=== PATIENT | female | born 1935 | race Caucasian/White ===

== ENCOUNTER 2017-07-10 18:21 | Inpatient (IN) | payer OTHER ==
[~2017-07-10] VITALS: Ht 152.4 cm; Wt 67.6 kg
[2017-07-10 19:09] LABS: HEMOGLOBIN 7.9 gm/dL (12.0-15.0); MCHC 32.5 g/dL (28.0-37.0); NUCLEATED RBCS 0 /100WBC; WBC 8.6 thou/uL (4.0-11.0)
[2017-07-10 19:13] LABS: HEMATOCRIT 24.4 % (37.0-47.0); MCH 30.2 pg (26.0-34.0); MCV 93.1 fL (80.0-100.0); MPV 9.3 fl. (7.2-11.1); PLATELET COUNT* 211 thou/uL (150-400); RBC 2.62 mil/uL (4.20-5.00); RDW-CV 16.4 % (10.5-14.5)
[2017-07-10 19:50] LABS: ABSOLUTE EOSINOPHILS 0.1 thou/uL (0.0-0.7); ABSOLUTE MONOCYTES 0.6 thou/uL (0.0-1.2); ABSOLUTE NEUTROPHILS 6.9 thou/uL (1.6-8.1); PLATELET ESTIMATE ADEQUATE
[2017-07-10] MEDS ORDERED: AMLODIPINE BESY10 MG PO (20:04)
[2017-07-10] MEDS ORDERED: LIPITOR10 MG PO (20:04)
[2017-07-10] MEDS ORDERED: PROTONIX40 M1 PO (20:05)
[2017-07-10] MEDS ORDERED: CARVEDILOL12.5 MG PO (20:05)
[2017-07-10] MEDS ORDERED: HYDRALAZINE 2525 MG PO (20:05)
[2017-07-10] MEDS ORDERED: PHOSLO667 MG PO (20:05)
[2017-07-10] MEDS ORDERED: MIRALAX17 GM PO (20:06)
[2017-07-10] MEDS ORDERED: HYDROCODONE-AP1 EAC6 PO (20:07)
[2017-07-10] MEDS ORDERED: VITAMIN D250000 UNIT PO (20:07)
[2017-07-10 20:25] VITALS: BP 130/53
[2017-07-10 20:43] LABS: ALBUMIN 2.1 g/dL (3.4-5.0); ALKALINE PHOSPHATASE 220 U/L (46-116); ANION GAP 7 mmol/L (7-16); CALCIUM 8.9 mg/dL (8.5-10.1); CHLORIDE 103 mmol/L (98-107); CO2 30 mmol/L (21-32); CREATININE 2.4 mg/dL (0.6-1.3); GLUCOSE 125 mg/dL (70-99); LIPASE 201 U/L (73-393); POTASSIUM 3.8 mmol/L (3.5-5.1); SGOT 70 U/L (15-37); SGPT 100 U/L (30-65); SODIUM 140 mmol/L (136-145); TOTAL BILIRUBIN 0.2 mg/dL (<0.1-1.0); TOTAL PROTEIN 6.1 g/dL (6.4-8.2); TROPONIN-I LEVEL <0.06 ng/mL (<0.06)
[2017-07-10 20:56] LABS: BUN 21 mg/dL (7-18)
[2017-07-10 23:30] VITALS: BP 125/57
[2017-07-10 23:52] LABS: URINE BILIRUBIN NEGATIVE (Negative); URINE BLOOD 3+ (Negative); URINE CLARITY TURBID; URINE COLOR YELLOW; URINE GLUCOSE-RANDOM NEGATIVE (Negative); URINE KETONES NEGATIVE (Negative); URINE LEUKOCYTES 3+ (Negative); URINE NITRITE NEGATIVE (Negative); URINE PROTEIN 2+ (Negative); URINE SPECIFIC GRAVITY 1.025 (1.005-1.030); URINE UROBILINOGEN 0.2 E.U./dl (0.2-1.0)
[2017-07-11] VITALS: BP 113/52
[2017-07-11 00:07] LABS: CASTS None Seen /LPF (None Seen); URINE WBC >25 Many /HPF (0-5)
[2017-07-11 00:08] LABS: BACTERIA >30 Many /HPF (None Seen); CRYSTALS None Seen /LPF (None Seen); URINE RBC 3-10 Few /HPF (0-2)
[2017-07-11 00:09] LABS: SQUAMOUS 0-3 Few /LPF (0-3)
[2017-07-11 04:00] VITALS: BP 122/61
--- NOTE | 2017-07-11 05:17 | NUR ---
PT TO FLOOR AT 2039. A&O X4. AFIB ON THE MONITO. REPORTS SOA, ON 4L O2 NC, HOB ELEVATED WITH RELIEF. MEDICAL RECORDS FAXED FROM [facility]. PT R AC INFILTRATED NEW IV IN RIGHT HAND. PT ON REPORTS UNABLE TO WALK DUE TO FLUID IN LEGS AND PAIN. PAIN REPORTED 6 GIVEN TYLENOL. VITALS WNL. FALL PRECAUTIONS IN PLACE. HOURLY ROUNDIN FOR SAFETY.
--- NOTE | 2017-07-11 08:00 | NUR ---
RECIEVED REPORT. ASSUMED CARE OF PT AT 0730. VSS. CARDIAC MONTIORING IN PLACE AFIB. AM ASSESSMENT AND VITALS COMPLETED CHARTED. PT ALERT AND ORIENTED. PT ON 4L PER NC. PT'S O2 SAT AT 96% THIS RN ATTEMPTED TO TITRATE O2 HOWEVER PT REFUSED THIS AM. PT DENIES ANY COMPLAINTS OF PAIN OR DISCOMFORT THIS AM. IV SALINE LOCKED TO RIGHT HAND. PT HAS RIGHT TEMPORARY DIALYSIS CATHETER TO CHEST. FISTULA TO LEFT UPPER ARM. 3+ EDEMA TO LUE. 1+ EDEMA TO RUE. AND 2+ EDEMA TO BILATERAL LE. BRADLEY IN PLACE WITH YELLOW URINE OUTPUT. PT INFORMED OF PLAN OF CARE. PT COMMUNICATES UNDERSTANDING. CALL LIGHT IS WITHIN REACH. WILL CONTINUE TO MONTIOR FOR DURATION OF SHIFT.
[2017-07-11 08:40] VITALS: BP 123/61
[2017-07-11 11:23] VITALS: BP 114/60
--- NOTE | 2017-07-11 11:24 | NUR ---
VIVIENNE SPOKE TO DR LEON TO DISCUSS PATIENTS REQUEST TO TRANSFER TO [facility]. DR LEON INFORMS THAT THE PATIENT WILL NEED A TELE BED, AND THE REASON FOR TRANSFER IS PER PATIENTS REQUEST. VIVIENNE CONTACTED THE [facility] TRANSFER TEAM AND SPOKE TO VINAY TO INFORM O THE TRANSFER. VINAY INFORMS THAT "[facility] IS CLOSED TO ALL TRANSFERS". CM SPOKE TO THE PATIENT TO INFORM OF THIS AND PATIENT STATES 'IF I CAN'T GO TO [facility], I'LL JUST STAY HERE'. CM INFORMED THE RN IN-CHARGE OF THE PATIENT AND DR LEON OF THIS AND THEY ARE IN AGREEMENT. CM WILL REMAIN AVAILABLE TO ASSIST AND FOLLOW NEEDED.
--- NOTE | 2017-07-11 14:37 | EKG ---
[place] [address] ELECTROCARDIOGRAM REPORT Name: KIRTI SIMPSON Room: [address] ADM IN ..#: [id number] Admission: 07/10/17 Attend Phys: Janine Gray Discharge: Date of : 31 Report #: [id number] THIS REPORT FOR: //name// [facility] ED Test Date: 2017-07-10 Test Time: 18:33:08 Pat Name: KIRTI SIMPSON Department: Room: [facility] Gender: F Human Resources Operations Director: BISI : 1935 Requested By: Mary Botello Order Number: [id number] MD: Alexx Plaza Measurements Intervals [place] Rate: 90 P: 104 OK: 188 QRS: -39 QRSD: 159 T: 15 QT: 381 QTc: 467 Interpretive Statements Sinus rhythm Ventricular premature complex Right bundle branch block No previous ECG available for comparison Electronically Signed On 07-11-2017 14:37:39 MARKETING OUTREACH COORDINATOR by Alexx Plaza [email or web address] <ELECTRONICALLY SIGNED> By: Alexx Plaza MD, [facility] 07/11/17 1437 183 32 Alexx Plaza MD, [facility] /EPI
[2017-07-11 15:58] VITALS: BP 104/62
--- NOTE | 2017-07-11 17:01 | NUR ---
VSS. CARDIAC MONITORING IN PLACE WITH NO CHANGES THIS SHIFT. PT REMAINS ALERT AND ORIETNED. PT REMAINS ON 4L PER NC. IV SALINE LOCKED. PT HAS HAD NO COMPLAINTS OF PAIN OR DISCOMFORT THIS SHIFT. PT PROGRESSING TOWARDS GOALS. PT HAS HAD NO COMPLAINTS OF SOA. PT REPOSITIONED THROUGHOUT THIS SHIFT. CALL LIGHT IS WITHIN REACH. WILL CONTINUE TO MONITOR FOR DURAITON OF SHFIT.
--- NOTE | 2017-07-11 19:49 | NUR ---
VSS, PT WAS TAKEN TO DIALYSIS NO OTHER STATUS CHANGE AT THIS TIME,
[2017-07-11 22:00] VITALS: BP 118/48
[2017-07-12] VITALS: BP 130/55
[2017-07-12 04:00] VITALS: BP 118/73
--- NOTE | 2017-07-12 04:41 | NUR ---
PT BACK FROM DIALYSIS 2121 AND HAD 2.5 L OUT, ASSUMED CARE AT 2121. REPORTS SOA O2 MOVED TO 4L AND HOB ELEVATED. AFIB ON THE MONITOR. GENERALIZED EDMEA. MAX ASSIST FOR TRANSFER. LUNGS COARSE AND DIM. VITALS WNL. FALL PRECAUTIONS IN PLACE. HOURLY ROUNDING FOR SAFETY.
[2017-07-12 04:59] LABS: CALCIUM 9.1 mg/dL (8.5-10.1); HEMATOCRIT 23.4 % (37.0-47.0); HEMOGLOBIN 7.7 gm/dL (12.0-15.0); MCH 30.3 pg (26.0-34.0); MCHC 32.9 g/dL (28.0-37.0); MPV 9.9 fl. (7.2-11.1); NUCLEATED RBCS 0 /100WBC; PLATELET COUNT* 220 thou/uL (150-400); POTASSIUM 3.8 mmol/L (3.5-5.1); RBC 2.54 mil/uL (4.20-5.00); RDW-CV 16.3 % (10.5-14.5); WBC 9.4 thou/uL (4.0-11.0)
[2017-07-12 05:19] LABS: CREATININE 3.4 mg/dL (0.6-1.3)
[2017-07-12 06:22] LABS: ABSOLUTE BASOPHILS 0.1 thou/uL (0.0-0.2); ABSOLUTE EOSINOPHILS 0.1 thou/uL (0.0-0.7); ABSOLUTE LYMPHOCYTES 0.8 thou/uL (0.8-5.3); ABSOLUTE MONOCYTES 0.5 thou/uL (0.0-1.2); ANISOCYTOSIS 1+; HYPOCHROMASIA 2+; METAMYELOCYTES 1 %; PLATELET ESTIMATE ADEQUATE
--- NOTE | 2017-07-12 07:45 | NUR ---
RECEIVED REPORT FROM FRANCISCO WARE. ASSUMED CARE OF PT AT 0730. VSS. CARDIAC MONTIORING IN PLACE AFIB. AM ASSESSMENT AND VITALS COMPLETED CHARTED. PT ALERT AND ORIETNED. PT TITRATED TO 2.5L PER NC WITH O2 SAT AT 94% PT'S RESPIRATIONS EVEN AND UNLABORED THIS AM. CXR SHOWS PERSISTENT SMALL TO MOD PLEURAL EFFUSION. PT DENIES ANY COMPLAINTS OF PAIN OR DISCOMFORT THIS AM. PT'S EDEMA HAS IMPROVED FROM YESTERDAY. PT HAS 2+ EDEMA TO LUE. PT HAS NONPITTING EDEMA TO RUE. AND PT HAS 1+ EDEMA TO BILATERAL LE. NOTED BOGGY HEELS THIS AM. PT RE-EDUCATED TO ELEVATE HEELS. PILLOW AND WEDGE PROVIDED. BRADLEY REMIANS IN PLACE WITH YELLOW URINE OUTPUT. PT ENCOURAGED TO INCREASE ACTIVITY TODAY. PT COMMUNICATES UNDERSTANDING. CALL LIGHT IS WITHIN REACH. WILL CONTINUE TO MOTNIOR FOR DURAITON OF SHIFT.
[2017-07-12 08:43] VITALS: BP 130/62
--- NOTE | 2017-07-12 09:24 | NUR ---
NOTED THAT PT WAS NOT ON ANTICOAGULATION FOR AFIB. DISCUSSED WITH DR. MIRAMONTES. WILL CONTINUE TO MOTNIOR.
--- NOTE | 2017-07-12 10:54 | NUR ---
PT HAS COMPLAINTS OF FEELING SOA. O2 SAT CHECKED WAS AT 94% ON 2.5L. PT REPOSITIONED. PT REQUESTING BREATHING TREATMENT. WILL CONTINUE TO MOTNIOR.
[2017-07-12 12:40] VITALS: BP 115/59
[2017-07-12 16:00] VITALS: BP 107/53
--- NOTE | 2017-07-12 16:46 | NUR ---
VSS. CARDIAC MONITOIRING IN PLACE WITH NO CHANGES THIS SHIFT. PT SOMEWHAT PROGRESSING TOWARDS GOALS. PT HAS CONTINUED COMPLAINTS OF INTERMITTENT SOA. DR. LEON DISCUSSED THE POSSIBILY OF THORACENTESIS TOMORROW. PT REMIANS ON 2.5L PER NC. IV SALINE LOCKED. PT HAS HAD NO COMPLAINTS OF PAIN OR DISCOMFORT THIS SHIFT. PT ASSISTED TO RECLINING CHAIR X2 ASSIST. PT HAD LARGE BM THIS SHIFT. CALL LIGHT IS WITHIN REACH. BRADLEY REMAINS IN PLACE WITH CLOUDY YELLOW URINE OUTPUT NOTED. CALL LIGHT IS WITHIN REACH. WILL CONTINUE TO MOTNIOR FOR DURAITON OF SHIFT.
[2017-07-12 19:50] VITALS: BP 110/45
[2017-07-13] VITALS (7 sets, daily range): BP systolic 92–142; BP diastolic 50–71
[2017-07-13 04:56] LABS: ABSOLUTE BASOPHILS 0.1 thou/uL (0.0-0.2); ABSOLUTE EOSINOPHILS 0.2 thou/uL (0.0-0.7); ABSOLUTE LYMPHOCYTES 1.6 thou/uL (0.8-5.3); ABSOLUTE MONOCYTES 0.6 thou/uL (0.0-1.2); ABSOLUTE NEUTROPHILS 7.5 thou/uL (1.6-8.1); BASOPHILS 0.5 %; EOSINOPHILS 2.1 %; HEMATOCRIT 24.2 % (37.0-47.0); HEMOGLOBIN 7.7 gm/dL (12.0-15.0); LYMPHOCYTES 16.3 %; MCH 29.5 pg (26.0-34.0); MCHC 31.6 g/dL (28.0-37.0); MCV 93.5 fL (80.0-100.0); MONOCYTES 5.7 %; MPV 9.5 fl. (7.2-11.1); NUCLEATED RBCS 0 /100WBC; PLATELET COUNT* 227 thou/uL (150-400); POLYS 75.4 %; RBC 2.59 mil/uL (4.20-5.00); RDW-CV 17.1 % (10.5-14.5)
[2017-07-13 05:23] LABS: CALCIUM 8.9 mg/dL (8.5-10.1); CREATININE 3.9 mg/dL (0.6-1.3); POTASSIUM 4.3 mmol/L (3.5-5.1)
--- NOTE | 2017-07-13 06:58 | NUR ---
A&O X4 CALM COOPERITVE. 2L O2 SAT 95. X1-2 ASSIST WITH WALKER. AFIB ON THE MONITOR. PLAN IS FOR THORENCETISIS AND DIALYSIS IN AM. PAIN IN BI LAT LEGS GIVEN PAIN PILL. VITALS WNL, FALL PRECAUTIONS IN PLACE, HOURLY ROUNDING FOR SAFETY.
--- NOTE | 2017-07-13 09:41 | NUR ---
PATIENT CARE ASSUMED AT 0700. PATIENT ASSESSMENT AND VITALS DOCUMENTED. TRACING A-FIB WITH A BUNDLE BRANCH BLOCK ON PHYSICIAN ANESTHESIOLOGIST. MEDS GIVEN WHOLE WITH WATER. PROVIDED BOOST VANILLA FOR BREAKFAST, PATIENT STATED SHE DIDN'T WANT TO EAT. PATIENT TO HAVE THORACENTESIS AT 1120 WITH POST TEST XRAY AND THEN DIALYSIS AT 1430 THIS AFTERNOON. GOALS FOR TODAY ARE TO PROMOTE BREATHING AND MANAGE OXYGEN, COMPLETE THORACENTESIS, MAINTAIN HEMODYNAMIC STABILITY, DIALYSIS AND STRICT INTAKE AND OUTPUT, MAINTAIN SKIN INTEGRITY, AND PROMOTE SAFETY AND COMFORT.
[2017-07-13 10:08] LABS: INR 1.1; PROTIME 11.1 Seconds (9.20-11.50)
--- NOTE | 2017-07-13 11:31 | NUR ---
PATIENT LEFT THE UNIT FOR THORACENTESIS AT 1120.
--- NOTE | 2017-07-13 12:38 | NUR ---
PATIENT RETURNED FROM THORACENTESIS. HAD NON-RESPONSIVE EVENT IN ULTRASOUND POST PROCEDURE. 1,000 ML CLEAR YELLOW FLUID DRAINED FROM THE RIGHT LUNG PER DR CAMP. PATIENT HAS NON-PRODUCTIVE COUGH POST PROCEDURE, BUT SITE INTACT WITH NO BLEEDING. PATIENT NOW AOX4. BP 93/57 WITH A MAP OF 70 POST PROCEDURE. WILL CONTINUE WITH CLOSE MONITORING OF BLOOD PRESSURE. CONTINUES TO TRACE A-FIB RIGHT BUNDLE BRANCH BLOCK ON PRINTING PRESS MACHINIST. PATIENT STILL TO DIALYZE THIS AFTERNOON.
[2017-07-13 12:56] LABS: SOURCE RIGHT THORACENTESIS
--- NOTE | 2017-07-13 12:57 | NUR ---
PATIENT REPORTING INCREASED PAIN IN RIGHT LUNG. CXR COMPLETED AND IS PENDING. MOVING AIR EQUALLY IN BILATERAL LUNGS. CLEAR/DIMINISHED IN THE BASES. O2 SAT 93% ON 3L NC. PATIENT GIVEN PRN TYELNOL FOR PAIN RATED AT 5/10. NOTIFIED THAT IF PAIN IS NOT CONTROLLED 45 MINUTES TO AN HOUR AFTER TYLENOL, HYDROCODONE PRN IS AVAILABLE.
--- NOTE | 2017-07-13 13:29 | NUR ---
CM ASSESSMENT: Pt is A&O. Pt normally resides at home alone. Has been at [facility] skilled prior to this admission, Pt/dtr do not want Pt to return there at tn. Pt scheduled to have a thora today, then dialysis afterwards. Pt receives HD at [facility], with a noon chair time. Pt in agreement with skilled at tn, [facility], [facility]. Following for dc needs.
--- NOTE | 2017-07-13 14:05 | 2DMMODE ---
[place] [address] 2 D/M-MODE ECHOCARDIOGRAM Name: KIRTI SIMPSON Room: [address] IN .R.#: [id number] Admission: 07/10/17 Attend Phys: Sam Brantley Discharge: Date of : 31 Date of Service: 07/13/17 1404 Report #: [id number] THIS REPORT FOR: //name// APPROVED REPORT Study performed: 07/13/2017 10:13:09 EXAM: Comprehensive 2D, Doppler, and color-flow Echocardiogram Patient Location: Bedside BSA: 1.69 HR: 95 bpm BP: 114/59 mmHg Other Information Study Quality: Good Indications Aortic Valve Disease 2D Dimensions LVEF(%): 70.93 (>50%) IVSd: 12.63 (7-11mm) LVOT Diam: 14.81 (18-24mm) LVDd: 39.05 mm PWd: 11.10 (7-11mm) Ascending Ao: 20.81 (22-36mm) LVDs: 23.55 (25-40mm) Aortic Root: 22.87 mm Mahajan's LVEF: 70.93 % Volumes Left Atrial Volume (Systole) LA ESV Index: 39.30 mL/m2 Aortic Valve AoV Peak Vamshi.: 2.18 m/s AO Peak Gr.: 18.93 mmHg LVOT Max P.90 mmHg AO Mean Gr.: 10.57 mmHg LVOT Mean P.87 mmHg LVOT Max V: 0.99 m/s AO V2 VTI: 37.77 cm LVOT Mean V: 0.62 m/s BRANDYN (VTI): 0.83 cm2 LVOT V1 VTI: 18.29 cm Mitral Valve E/A Ratio: 2.94 MV Decel. Time: 142.96 ms MV E Max Vamshi.: 1.14 m/[place] [address] 2 D/M-MODE ECHOCARDIOGRAM Name: KIRTI SIMPSON Room: [address] IN [facility]#: [id number] Admission: 07/10/17 Attend Phys: Sam Brantley Discharge: Date of : 31 Date of Service: 07/13/17 1404 Report #: [id number] MV PHT: 41.46 ms MVA (PHT): 5.31 cm2 TDI E/Lateral E': 14.25 E/Medial E': 11.40 Medial E' Vamshi.: 0.10 m/s Lateral E' Vamshi.: 0.08 m/s Pulmonary Valve PV Peak Vamshi.: 1.04 m/s PV Peak Gr.: 4.32 mmHg Tricuspid Valve RAP Estimate: 20.00 mmHg TR Peak Gr.: 23.90 mmHg RVSP: 43.90 mmHg PA Pressure: 43.90 mmHg Left Ventricle The left ventricle is normal size. There is normal LV segmental wall motion. Mild concentric left ventricular hypertrophy. Left ventricular systolic function is normal. The left ventricular ejection fraction is within the normal range. LVEF is 60-65%. The left ventricular diastolic function is normal. Right Ventricle The right ventricle is normal size. The right ventricular systolic function is normal. Atria Left atrium is mildly dilated. The right atrium size is normal. Aortic Valve Aortic valve leaflets are mildly thickened. No aortic regurgitation is present. Mild aortic stenosis. Mitral Valve Mitral valve leaflets are calcified. Mild mitral regurgitation. No evidence of mitral valve stenosis. Tricuspid Valve The tricuspid valve is normal in structure. Mild tricuspid regurgitation. estimated pa pressure 30 mm Hg Pulmonic Valve The pulmonary valve is normal in structure. There is no pulmonic [place] [address] 2 D/M-MODE ECHOCARDIOGRAM Name: KIRTI SIMPSON Room: [address]#: [id number] Admission: 07/10/17 Attend Phys: Sam Brantley Discharge: Date of : 31 Date of Service: 07/13/17 1404 Report #: [id number] Great Vessels The aortic root is normal in size. IVC is dilated. Pericardium Mild circumferential pericardial effusion. There is a pleural effusion. <Conclusion> Mild concentric left ventricular hypertrophy. LVEF is 60-65%. Left atrium is mildly dilated. Mild aortic stenosis. Mild mitral regurgitation. Mild circumferential pericardial effusion. There is a pleural effusion. <ELECTRONICALLY SIGNED> By: Mo Caicedo MD, FACC 07/13/17 1404 1404 1404 Mo Caicedo MD, FACC /INF
--- NOTE | 2017-07-13 16:55 | NUR ---
PATIENT SOMEWHAT PROGRESSING TOWARDS GOALS. NO FURTHER EPISODES OF DECREASED RESPONSIVENESS SINCE THORACENTESIS. HAS REMAINED AOX4. LARGE BM USING BEDPAN UPON RETURNING FROM ULTRASOUND. REMAINS TRACING A-FIB WITH A BUNDLE BRANCH BLOCK ON CHILD CARE. RATE 80-115. BLOOD PRESSURES 90S/40S BUT HAVE REMAINED STABLE WITH MAP ABOVE 65. PATIENT DENIES FURTHER NEEDS FOR PAIN MEDICATION AFTER ONE DOSE OF HYDROCODONE. STILL TO DIALYZE PER DIALYSIS NURSE AFTER DINNER. DID REFUSE THERAPIES TODAY. NOTED THAT PATIENT IS NOT ON ANTICOAGULANTS, DISCUSSED WITH DR LEON'S MED STUDENT. PATIENT DID HAVE THORACENTESIS TODAY, SO THIS MAY NEED TO BE DISCUSSED WITH CARDIOLOGY AT A LATER DATE. POOR APPETITE. BOOST VANILLA GIVEN WITH EACH MEAL. DENIES FURTHER NEEDS FROM NURSING AT THIS TIME.
--- NOTE | 2017-07-13 18:33 | NUR ---
PATIENT TAKEN TO DIALYSIS AT 1830.
[2017-07-14 04:00] VITALS: BP 125/60
[2017-07-14 04:53] LABS: ABSOLUTE EOSINOPHILS 0.1 thou/uL (0.0-0.7); ABSOLUTE LYMPHOCYTES 1.2 thou/uL (0.8-5.3); ABSOLUTE MONOCYTES 0.6 thou/uL (0.0-1.2); ABSOLUTE NEUTROPHILS 8.7 thou/uL (1.6-8.1); BASOPHILS 0.3 %; EOSINOPHILS 1.3 %; HEMATOCRIT 23.1 % (37.0-47.0); HEMOGLOBIN 7.4 gm/dL (12.0-15.0); LYMPHOCYTES 11.2 %; MCH 29.8 pg (26.0-34.0); MCHC 32.2 g/dL (28.0-37.0); MCV 92.7 fL (80.0-100.0); MONOCYTES 5.7 %; MPV 9.3 fl. (7.2-11.1); NUCLEATED RBCS 0 /100WBC; PLATELET COUNT* 188 thou/uL (150-400); POLYS 81.5 %; WBC 10.7 thou/uL (4.0-11.0)
[2017-07-14 05:53] LABS: CALCIUM 8.6 mg/dL (8.5-10.1); POTASSIUM 4.2 mmol/L (3.5-5.1)
[2017-07-14 05:54] LABS: CREATININE 2.7 mg/dL (0.6-1.3)
--- NOTE | 2017-07-14 07:42 | NUR ---
PT BACK FROM DIALYSIS AT 2245 AND ASSUMED CARE. PT HAD PAIN IN LEGS GIVEN PAIN PILL WITH RELIEF NOTED. PT AFIB ON THE MONITOR. PT REFUSES TURNS. FALL PRECAUTIONS IN PLACE. HOURLY ROUNDING FOR SAFETY. VITALS WNL. X1 ASSIST.
[2017-07-14 08:00] VITALS: BP 117/55
--- NOTE | 2017-07-14 10:21 | NUR ---
Spoke with Matilde at [facility], they are able to clinically accept, awaiting insurance auth. Updated Pt. Following.
[2017-07-14 11:12] LABS: BODY FLUID LDH 168 IU/L (()); BODY FLUID PROTEIN 1.6 g/dL (())
[2017-07-14 11:29] VITALS: BP 124/53
--- NOTE | 2017-07-14 13:19 | CNG ---
[address] [address] CYTO-NONGYN REPORT PROCEDURE Name: KIRTI SIMPSON Room: [address] IN .R.#: [id number] Admission: 07/10/17 Date of : 31 Discharge: Report #: [id number] Path Case #: [id number] CYTOPATHOLOGY REPORT COLLECTION DATE: 07/13/2017 RECEIVED DATE: 07/13/2017 SUBMITTING PHYS: Dr. Sandeep Rodríguez OTHER PHYS: Dr. Sam Marinelli CLINICAL HISTORY: Renal failure, dyspnea SPECIMEN(S) RECEIVED: A.Pleural fluid, Right * * * * * * * * * * * * FINAL DIAGNOSIS: Pleural fluid, right: - No malignant cells identified. -Mesothelial cells and inflammatory cells, predominantly chronic. (ANASTASIYA:r; 07/14/2017) PATHOLOGIST: Anibal Kamara M.D. REPORT ELECTRONICALLY SIGNED BY: Anibal Kamara M.D. DATE/TIME: 07/14/2017 13:03 * * * * * * * * * * * * GROSS PATHOLOGY: Pleural fluid, right: The specimen is submitted fixed, labeled "Kirti Simpson". Received by the Cytology Department is 35 mL of cloudy yellow fluid. One ThinPrep slide and an alcohol fixed cell block were prepared. (07.13.2017) AUTOMOTIVE MAINTENANCE TECHNICIAN(S): HALIMA Menjivar([facility]) INITIAL CPT CODE(S): A; 29839, 68904 Professional services performed by [facility] at [facility], [address], [place] [address]. Technical services performed by [facility] at [address] [place] [address]., [address], [place] [address]. [facility] [address] [place] [address], [address] [place] [address] [place] [address] CYTO-NONGYN REPORT PROCEDURE Name: KIRTI SIMPSON Room: [address] IN .R.#: [id number] Admission: 07/10/17 Date of : 31 Discharge: Report #: [id number] Path Case #: [id number] PHONE: [phone] DIRECTOR: Cleveland Mendieta M.D. * * * END OF REPORT * * *
--- NOTE | 2017-07-14 13:44 | NUR ---
ASSUMED PT CARE AT 0700 PT IS ALERT AND ORIENTED X 4 PT HAS DIALYSIS PORT IN RIGHT CHEST PT FISTULA IN THE LEFT ARM IS NOT ABLE TO BE ACCESSED, PT DENIES PAIN OR SOA ON 2L/NC, PT IS PLEASANT AND COOPERATIVE CALLED DIALYSIS PT DOES NOT HAVE DIALYSIS SCHEDULED TODAY PHYSICIAN SAW PT AND STATES PT IS NOT ABLE TO DISCHARGE TODAY, PT IS AFIB ON THE MONITOR PT LEFT ARM HAS EDEMA, PT HAS WEAKNESS UNABLE TO GET UP OUT OF BED IS USING BEDPAN, WILL CONTINUE TO MONITOR
[2017-07-14 17:56] VITALS: BP 96/51
[2017-07-14 20:00] VITALS: BP 119/53
[2017-07-15] VITALS: BP 114/56
[2017-07-15 04:00] VITALS: BP 135/61
--- NOTE | 2017-07-15 07:38 | NUR ---
A&O X4 CALM COOPERITIVE, AFIB BBB ON THE MONITOR. X1 ASSIST. 4L O2. VITALS WNL. FALL PRECAUTIONS IN PLACE. HOURLY ROUNDING FOR SAFETY.
[2017-07-15 13:01] LABS: HEMATOCRIT 25.7 % (37.0-47.0); HEMOGLOBIN 8.1 gm/dL (12.0-15.0); MCH 29.2 pg (26.0-34.0); MCHC 31.3 g/dL (28.0-37.0); MCV 93.2 fL (80.0-100.0); RBC 2.76 mil/uL (4.20-5.00); RDW-CV 17.6 % (10.5-14.5)
[2017-07-15 13:17] LABS: ALBUMIN 2.1 g/dL (3.4-5.0); CALCIUM 8.7 mg/dL (8.5-10.1); CREATININE 1.6 mg/dL (0.6-1.3); POTASSIUM 3.6 mmol/L (3.5-5.1); TOTAL BILIRUBIN 0.3 mg/dL (<0.1-1.0); TOTAL PROTEIN 6.3 g/dL (6.4-8.2)
--- NOTE | 2017-07-15 15:02 | NUR ---
ASSUMED PT CARE AT 0700 PT IS ALERT AND ORIENTED X 4 PT PT IS A FALL RISK BED ALARM IS ON, PT WENT TO DIALYSIS AROUND 0800 PT IS AFIB ON MONITOR, PT CAME BACK FROM DIALYSIS AROUND 1230 3 LITERS REMOVED DIALYSIS NURSE STATED PT HEART RATE HAS BEEN IN THE 130'S TALKED WITH DR MG WHO ORDERED A CARDIOLOGY CONSULT AWAITING CARDIOLOGY TO SEE PT, PT WORKED WITH OT WHO GOT PT IN CHAIR PT SAT IN CHAIR FOR AN HOUR AND PT IS BACK IN BED WITH BED ALARM ON, WILL CONTINUE TO MONITOR
--- NOTE | 2017-07-15 15:15 | NUR ---
Pt not discharging today. Cardiology consulted. Updated Sara at [facility].
[2017-07-15 16:00] VITALS: BP 109/56
[2017-07-15 19:50] VITALS: BP 110/44
[2017-07-16] VITALS: BP 110/44
[2017-07-16 04:00] VITALS: BP 127/50
--- NOTE | 2017-07-16 07:45 | NUR ---
A&O X4 CALM COOPERITVE. SR BBB ON THE MONITOR. X1 ASSIST TO COMODE. PT ON 4L O2. NO BM. VITALS WNL. FALL PRECAUTIONS IN PLACE. HOURLY ROUNDING FOR SAFETY.
[2017-07-16 09:00] VITALS: BP 127/44
--- NOTE | 2017-07-16 10:23 | NUR ---
Acute rehab consult to be placed. Discussed with Dr Brantley and he is in agreement with pursuing rehab. Updated Pt's dtr. PT/OT/ST to work with Pt today. Dtr in agreement and is available post discharge to either stay with Pt or have Pt come and stay with her. Following.
[2017-07-16 11:58] VITALS: BP 119/50
--- NOTE | 2017-07-16 14:29 | NUR ---
ASSUMED PT CARE AT 0700 PT IS ALERT AND ORIENTED X 4 PT DENIES PAIN PT C/O SOA ON 4L/NC INCREASED OXYGEN TO 5L RAISED HOB CALLED RESPIRATORY WHO GAVE PT BREATHING TREATMENT PT ABLE TO BREATH EASIER AFTER TREATMENT, PT WORKED WITH PHYSICAL THERAPY PT IS IN CHAIR PT HAD MIRALAX ON PREVIOUS SHIFT PT HAD SOFT LOOSE BOWEL MOVEMENT, PT IS SR BBB ON THE MONITOR, DR LEON SAW PT WANTS PT TO STAY A FEW MORE DAYS TO DIALYIZE MORE FLUID OFF PT BEFORE DISCHARGING TO [facility], WILL CONTINUE TO MONITOR
[2017-07-16 16:10] VITALS: BP 134/50
--- NOTE | 2017-07-16 16:21 | NUR ---
RECEIVED CONSULT FOR POSSIBLE REHAB ADMISSION. CONSULT HAS BEEN ACKNOWLEDGED BY TAX CLERK AND DR. MENDOZA. CARDIOLOGY CONSULT IS PENDING. PT WORKING WITH PT/OT/ST AND HAS NEEDS FOR ALL THREE. PT IS A NEW DIALYSIS PT. SPOKE WITH THERAPIES FEEL PT WOULD BE A GOOD REHAB CANDIDATE. PLOF WAS INDEPENDENT. PT AGREEABLE TO ACUTE REHAB. WILL PLAN TO ACCEPT PT TO ACUTE REHAB ONCE MEDICALLY STABLE AND PENDING INSURANCE AUTH. SPOKE WITH STANISLAV PALAFOX AND INFORMED HER OF TENTATIVE ACCEPTANCE. HAVE INITIATED AUTH. THANK YOU FOR THIS CONSULT.
--- NOTE | 2017-07-16 19:34 | CON ---
[address] [address] CONSULTATION Name: KIRTI SIMPSON Room: [address] IN M.R.#: [id number] Admission: 07/10/17 Attend Phys: Janine Gray Discharge: Date of : 31 Report #: [id number] THIS REPORT FOR: //name// CC: Nabil Brantley DATE OF SERVICE: 07/15/2017 CARDIOLOGY CONSULTATION HISTORY OF PRESENT ILLNESS: The patient is an 81-year-old single white female who I was asked to see in the hospital today because of her atrial fibrillation. The patient has a long history of diabetes and hypertension. She has a long history of chronic kidney disease. She apparently was admitted to [facility] in [place], [place] in June. She developed renal failure and was transferred to [place]. She started on hemodialysis. She was then discharged to rehabilitation center in [place]. She was being dialyzed there. She apparently had a fistula placed in the left arm, but it does not work. So she now has a temporary dialysis catheter in place. She was noted to have atrial fibrillation. She was not cardioverted. She apparently was anticoagulated, but developed black stools. She underwent a colonoscopy and was found to have colon polyps. The patient was brought from the rehab center to [facility] 6 days ago. She was having swelling of her arms and legs and then short of breath. During dialysis today, the patient's rate of atrial fibrillation increased. I was asked to see her for further evaluation and treatment. She denies history of myocardial infarction, chest pain, syncope. PAST MEDICAL HISTORY: Otherwise significant for back surgery. She has had a murmur for years. MEDICATIONS: Included amlodipine, Lipitor, carvedilol, hydralazine. ALLERGIES: She has intolerance TO IBUPROFEN AND LISINOPRIL. FAMILY HISTORY: Heart disease runs in the family. SOCIAL HISTORY: She is , lives in [place]. Quit smoking years ago. No alcohol abuse. REVIEW OF SYSTEMS: She has had no history of stroke, asthma, peptic ulcer disease, liver disease. She had cancer of the bladder. No psychiatric illness. No chronic skin condition. PHYSICAL EXAMINATION: GENERAL: Revealed an elderly female lying in bed. [place] [address] CONSULTATION Name: KIRTI SIMPSON Room: [address] IN [facility]#: [id number] Admission: 07/10/17 Attend Phys: Janine Gray Discharge: Date of : 31 Report #: [id number] VITAL SIGNS: She had a blood pressure of 120/70, pulse is 100 and irregular. She is afebrile. HEENT: She is anicteric, conjunctiva pink. Mucous members appear dry. NECK: Veins nondistended. No carotid bruits. CHEST: Clear to auscultation. CARDIOVASCULAR: Irregular rhythm. ABDOMEN: Soft. EXTREMITIES: Had pitting edema up to the mid tibial area. Dorsalis pedis pulse cannot be palpated. SKIN: Cool and dry. DIAGNOSTIC DATA: Her ECG shows atrial fibrillation, increased ventricular response rate with a right bundle branch block. Workup so far here at [facility] included an echocardiogram that showed left ventricular hypertrophy, ejection fraction 60%, left atrial enlargement, mild aortic stenosis, mild mitral regurgitation, small pericardial effusion, a pleural effusion was noted. Her x-rays since she has been here, she had portable chest x-ray that showed cardiomegaly, dialysis catheter in place, small left effusion. Lab work: Sodium 138, BUN 9, creatinine 1.6. Liver function studies are normal. Albumin 2.1, hemoglobin 8.1. IMPRESSION AND RECOMMENDATIONS: 1. Atrial fibrillation. Rate is not very well controlled. The patient has been on carvedilol. At this time, I did increase the dose. If she continues to have rapid rates of atrial fibrillation, I would add diltiazem. The patient does not appear to be a very good candidate for anticoagulation. 2. Mild aortic stenosis. 3. End-stage renal disease. The patient is on hemodialysis. 4. Hypertension. The patient is on a beta layla. 5. Hyperlipidemia. The patient is on a statin drug. 6. Recent gastrointestinal bleed. <ELECTRONICALLY SIGNED> By: Mo Caicedo MD, FACC 07/16/17 [id number] 0000Davijanine Caicedo MD, FACC /nt
[2017-07-16 20:00] VITALS: BP 126/46
--- NOTE | 2017-07-16 22:42 | NUR ---
ASSESSMENT AND VITALS COMPLETED CHARTED, VSS. CONTRACT ENGINEER TRACING SR, BBB. PATIENT DENIES PAIN AND DISCOMFORT. BRADLEY REMAINS IN PLACE TO DD. PATIENT VOICES CONCERN ABOUT BLOOD PRESSURE MEDICATION AND HOW IT WAS "DROPPING HER BP TOO LOW." REASSURED PATIENT THAT NORVASC HAS BEEN DISCONTINUED BY PHYSICIAN. PATIENT RELIEVED. PATIENT RESTING COMFORTABLY WITH CALL LIGHT WITHIN REACH.
[2017-07-17] VITALS (10 sets, daily range): BP systolic 84–134; BP diastolic 35–59
[2017-07-17 05:03] LABS: HEMATOCRIT 21.6 % (37.0-47.0); HEMOGLOBIN 7.1 gm/dL (12.0-15.0); MCH 30.5 pg (26.0-34.0); MCHC 32.7 g/dL (28.0-37.0); MCV 93.1 fL (80.0-100.0); MPV 8.9 fl. (7.2-11.1); NUCLEATED RBCS 0 /100WBC; PLATELET COUNT* 189 thou/uL (150-400); RBC 2.32 mil/uL (4.20-5.00); RDW-CV 17.6 % (10.5-14.5); WBC 10.5 thou/uL (4.0-11.0)
--- NOTE | 2017-07-17 05:06 | NUR ---
PATIENT PROGRESSING TOWARDS GOALS: BLOOD PRESSURE STABLE THIS AM. MIDNIGHT CARDIZEM WAS HELD DUE TO PATIENT'S CONCERN ABOUT BLOOD PRESSURE. O2 SATS MAINTAINED >92% ON 5L NC. HOURLY ROUNDING OBSERVED. CALL LIGHT WITHIN REACH
[2017-07-17 05:16] LABS: CALCIUM 9.1 mg/dL (8.5-10.1); POTASSIUM 4.2 mmol/L (3.5-5.1)
[2017-07-17 05:24] LABS: CREATININE 3.4 mg/dL (0.6-1.3)
[2017-07-17 07:09] LABS: ABSOLUTE BASOPHILS 0.1 thou/uL (0.0-0.2); ABSOLUTE EOSINOPHILS 0.1 thou/uL (0.0-0.7); ABSOLUTE LYMPHOCYTES 0.7 thou/uL (0.8-5.3); ABSOLUTE MONOCYTES 0.2 thou/uL (0.0-1.2); ABSOLUTE NEUTROPHILS 9.3 thou/uL (1.6-8.1); ANISOCYTOSIS 1+; PLATELET ESTIMATE ADEQUATE
--- NOTE | 2017-07-17 12:29 | NUR ---
REPORT RECIVED ON PT THIS AM PER FRANCISCO CARTER AT 0715- PT NOTED TO BE TRANSFERED TO DIALYSIS PRIOR TO ASSESSMENT AT 0720- PT RETURNED TO UNIT AROUND 1130 VSS 97.6 20 131/50 69 97% ON 5L VIA NC-PT REPORTED TO HAVE HAD 3L REMOVED WITH DIALYSIS THIS AM- CAREER SERVICES ASSISTANT IN PLACE ORDERED, TRACING SR WITH BBB-PT A&O x4- BRADLEY IN PLACE R/T ACCURATE I&O D/D CLEAR YELLOW URINE, CONTINENT OF BM- MAX ASSIST WITH TRANSFERS REQUIRED- LCTA, DIMINSHED IN BASES- RESP EVEN AND UN-LABORED- 2+ BLE EDEMA NOTED, LEG ELEVATION NOTED- IV NOTED TO RIGHT THUMB INTACT, IV ABT INFUSING ORDERED AT THIS TIME-TEMP RIGHT CHEST PORT FOR DIALYSIS NOTED INTACT, DRESSING C/D/I- LEFT ARM FISTULA NOTED TO NOT ELEN WORKING, +1 EDEMA NOTED TO SIGHT- AABDOMEN SOFT/ROUND/NON-TENDER, BS X4 QUADS- PT REPORTS LAST BM 07/16/17 AND TO ELEN LOOSE R/T MIRALAX USE; SCHEDULED MIRALAX HELD THIS AM- BS MONITORED THIS SHIFT PRESCRIBED- PT DENIES ANY C/O PAIN/DISCOMFORT AT THIS TIME- CALL LIGHT AND PERSONAL BELONGINGS WITH IN REACH- HOURLY ROUNDS IN PLACE R/T SAFETY/NEEDS- ALL NEEDS MET AT THIS TIME-WCTM
--- NOTE | 2017-07-17 12:54 | EKG ---
[place] [address] ELECTROCARDIOGRAM REPORT Name: KIRTI SIMPSON Room: [address] ADM IN .R.#: [id number] Admission: 07/10/17 Attend Phys: Janine Gray Discharge: Date of : 31 Report #: [id number] THIS REPORT FOR: //name// [facility] Test Date: 2017-07-17 Test Time: 09:42:53 Pat Name: KIRTI SIMPSON Department: Room: [address] Gender: F Resident In Diagnostic Radiology: 27 : 1935 Requested By: Mo Caicedo Order Number: [id number] Bogdan MD: Mo Caicedo Measurements Intervals [place] Rate: 64 P: -2 VA: 176 QRS: -62 QRSD: 170 T: 3 QT: 474 QTc: 489 Interpretive Statements Sinus rhythm RBBB and LAFB Compared to ECG 07/10/2017 18:33:08 sinus rhythm now noted Electronically Signed On 07-17-2017 12:54:43 CONTINUOUS DRYOUT OPERATOR by Mo Caicedo [email or web address] <ELECTRONICALLY SIGNED> By: Mo Caicedo MD, [facility] 07/17/17 1254 1 1 Mo Caicedo MD, [facility] /EPI
[2017-07-17 16:08] LABS: HEPATITIS B SURFACE AG Negative (Negative)
--- NOTE | 2017-07-17 16:22 | CON ---
[address] [address] CONSULTATION Name: KIRTI SIMPSON Room: [address] IN M.R.#: [id number] Admission: 07/10/17 Attend Phys: Janine Gray Discharge: Date of : 33 Report #: [id number] THIS REPORT FOR: //name// CC: Nabil Brantley CONSULTING PHYSICIAN: Sam Brantley DO REASON FOR CONSULTATION: End-stage kidney disease. HISTORY OF PRESENT ILLNESS: An 81-year-old female who recently has initiated dialysis and dialyzes on Thursday, Thursday and Thursday at the [facility]. She had her last dialysis yesterday, admitted with hospital-acquired pneumonia and urinary tract infection. She recently had an access treated for dialysis. She cannot tell me how much fluid she had removed with dialysis yesterday, but is complaining of some shortness of breath and swelling, which has not improved since she started dialysis. She presently does not have any complaints other than what is noted above. REVIEW OF SYSTEMS: Constitutional, psych, heme, eyes, ENT, respiratory, cardiac, GI, , endocrine all negative except as documented above. PAST MEDICAL HISTORY: 1. End-stage kidney disease. 2. History of cardiac arrest while hospitalized at [facility] recently. 3. History of AFib. 4. History of rheumatic fever. 5. Diabetes. SOCIAL HISTORY: No tobacco. FAMILY HISTORY: Not pertinent in this 81-year-old female. MEDICATIONS: Reviewed. PHYSICAL EXAMINATION: VITAL SIGNS: Blood pressure 123/61, pulse 93, respirations 16, temperature 36.2. GENERAL: No acute distress. EYES: Extraocular movements intact. EARS: Externally normal. CARDIOVASCULAR: Regular rate. LUNGS: Diminished breath sounds. ABDOMEN: Soft. LYMPHATICS: Positive pitting edema. PSYCHIATRIC: Awake, [place] [address] CONSULTATION Name: KIRTI SIMPSON Room: [address] IN [facility]#: [id number] Admission: 07/10/17 Attend Phys: Janine Gray Discharge: Date of : 33 Report #: [id number] LABORATORY DATA: White cell count 8.6, hemoglobin 7.9, platelets 211. Sodium 140, potassium 3.8, chloride 103, bicarbonate 30, BUN 21, creatinine 2.4, glucose 125, calcium 8.9. ASSESSMENT: 1. End-stage kidney disease, hemodialysis Thursday, Thursday and Thursday at the [facility], having started dialysis recently. 2. Anemia. 3. Hypoalbuminemia. 4. Pneumonia. 5. Volume overload. 6. Secondary hyperparathyroidism, on PhosLo. PLAN: We will arrange for extra ultrafiltration today to help with further fluid removal. We will follow up her maintenance dialysis needs and otherwise next dialysis will be on 07/13/2017. Thank you for requesting my opinion in the care and management of this patient. <ELECTRONICALLY SIGNED> By: Sang Tracy MD 07/17/17 1622 1012 [id number] Tracy MD /nt
--- NOTE | 2017-07-17 17:59 | NUR ---
PT OFF UNIT AOUND 1420 THIS SHIFT FOR SWALLOW EVAL PRESCRIBED, DURING THIS TIME PT NOTED TO BE COME IRVIN ON MONITOR LOW MID 30'S AT TIMES, WITH A-FIB NOTED WITH OCCASIONAL PAUSES- PT RETURNED TO UNIT AROUND THIS TIME WITH BP NOTED AT 94/40 HR-60 WITH PALE APPERANCE- EKG OBTAINED WITH RESULTS SHOWING A-FIB WITH LBBB- BP AT 1444 NOTED AT 84/49, AND AT 1445 100/10- NOTIFIED OF VS AND ASSESSMENT FINDINGS AND HERE TO ASSESS FURTHER- ORDERS NOTED FOR SOTALOL DECREASE TO 40MG BID AND CARDIZEM D/C'D-PT HAS SINCE STATED TO BE FEELING BETTER HR STABLE AT THIS TIME IN 60'S- SWALLOW STUDY INDICATED TO BE OKAY, BUT NOTED TO HAVE TROUBLE SWALLOWING PILLS- PT CHANGED TO MECHANICAL GROUND PER REQUEST R/T HAVING TROUBLE CHEWING MEATS- POOR PO INTAKE NOTED WITH MEALS, BOOST GIVEN- BS MONITORED PRESCRIBED, SSI GIVEN INDICATED- PT DENIES ANY C/O PAIN/DISCOMFORT AT THIS TIME- CALL LIGHT AND PERSOANL BELONGINGS WITH IN REACH- FREQUENTL CHECKS IN PLACE R/T SAFETY/NEEDS- Q 2 HOUR TURNS CONTINUED INDICATED- ALL NEEDS MET AT THIS TIME-WCTM
[2017-07-18] VITALS: BP 123/48
[2017-07-18 04:12] VITALS: BP 139/76
[2017-07-18 06:56] LABS: ABSOLUTE BASOPHILS 0.1 thou/uL (0.0-0.2); ABSOLUTE EOSINOPHILS 0.1 thou/uL (0.0-0.7); ABSOLUTE LYMPHOCYTES 1.1 thou/uL (0.8-5.3); ABSOLUTE MONOCYTES 0.7 thou/uL (0.0-1.2); ABSOLUTE NEUTROPHILS 8.9 thou/uL (1.6-8.1); BASOPHILS 0.6 %; HEMOGLOBIN 7.2 gm/dL (12.0-15.0); MCH 29.9 pg (26.0-34.0); MCHC 32.6 g/dL (28.0-37.0); MCV 91.8 fL (80.0-100.0); MONOCYTES 6.2 %; MPV 8.6 fl. (7.2-11.1); NUCLEATED RBCS 0 /100WBC; PLATELET COUNT* 212 thou/uL (150-400); POLYS 82.2 %; RBC 2.39 mil/uL (4.20-5.00); RDW-CV 16.8 % (10.5-14.5); WBC 10.8 thou/uL (4.0-11.0)
--- NOTE | 2017-07-18 06:58 | NUR ---
PATIENT PARTIALLY PROGRESSING TOWARDS GOALS: PATIENT REQUIRING 4L O2 NC TO MAINTAIN SATS >92%. PATIENT HAS EPISODES OF DIFFICULTY BREATHING, IMPROVED WITH ELEVATION OF HEAD OF BED AND REASSURANCE. PATIENT HAD UNEVENTFUL NIGHT OTHERWISE. HOURLY ROUNDING OBSERVED. CALL LIGHT WITHIN REACH
[2017-07-18 07:03] LABS: CALCIUM 8.9 mg/dL (8.5-10.1); CREATININE 2.5 mg/dL (0.6-1.3); POTASSIUM 4.1 mmol/L (3.5-5.1)
[2017-07-18 07:57] VITALS: BP 136/51
--- NOTE | 2017-07-18 09:46 | NUR ---
ASSUMED CARE OF PT THIS AM AROUND 0715- FROG OR OYSTER FARMWORKER IN PLACE ORDERED, TRACING A-FIB, RATE CONTROLLED- UPON ASSESSMENT PT NOTED TO BE RESTING IN BED- PT A&O X3- CONTINENT OF BOWEL, BRADLEY IN PLACE D/D CLEAR YELLOW URINE- EXTENSIVE ASSIST REQUIRED WITH TRANSERS- Q 2HOUR TURNS IN PLACE- LCTA, DIMINSHED IN BASES, LABORED BREATHING NOTED- VSS, O2 SAT 96% ON 4L THIS AM- ABDOMEN SOFT/ROUND/NON-TENDER, BS 4 QUADS- LAST BM REPORTED 07/17/17- GENERALIZED EDEMA NOTED, 2+ BLE; LEG ELEVATION IN PLACE- IV NOTED TO RIGHT HAND/THUMB IN PLACE AND SL, IV ABT ADMINISTERED THIS AM PRESCRIBED, NO ADVERSE REACTIONS TO NOTE- DIALYSIS PORT NOTED TO RIGHT UPPER CHEST, DRESSING C/D/I- BS MONITORED ORDERED, SSI PRESCIBED- POOR PO INTAKE NOTED, BOOST SUPPLEMENTS GIVEN- CHEST X-RAY COMPLETED THIS AM ORDERED- PT DENIES ANY C/O PAIN/DISCOMFORT AT THIS TIME- CALL LIGHT AND PERSONAL BELONGINGS WITH IN REACH- HOURLY ROUNDS IN PLACE R/T SAFETY/NEEDS- ALL NEEDS MET AT THIS TIME-[facility]
[2017-07-18 12:29] VITALS: BP 106/62
--- NOTE | 2017-07-18 13:46 | EKG ---
[place] [address] ELECTROCARDIOGRAM REPORT Name: KIRTI SIMPSON Room: [address] ADM IN M.R.#: [id number] Admission: 07/10/17 Attend Phys: Janine Gray Discharge: Date of : 33 Report #: [id number] THIS REPORT FOR: //name// [facility] Test Date: 2017-07-18 Test Time: 08:23:56 Pat Name: KIRTI SIMPSON Department: Room: [address] Gender: F Historical Society Director: GILMAR : 1935 Requested By: Mo Caicedo Order Number: [id number] Reading MD: Doyle Jean-Baptiste Measurements Intervals [place] Rate: 90 P: RI: QRS: -56 QRSD: 160 T: 2 QT: 415 QTc: 508 Interpretive Statements Atrial fibrillation RBBB and LAFB Compared to ECG 07/17/2017 09:42:53 Sinus rhythm no longer present Electronically Signed On 07-18-2017 13:46:33 SECURITY ROVER by Doyle Jean-Baptiste [email or web address] <ELECTRONICALLY SIGNED> By: Jerad Jean-Baptiste MD, [facility] 07/18/17 1346 2 2 Jerad Jean-Baptiste MD, [facility] /EPI
[2017-07-18 16:00] VITALS: BP 114/63
--- NOTE | 2017-07-18 17:51 | NUR ---
PT CURRENTY RESTING IN BED AT THIS TIME- CEMENT FINISHER HELPER IN PLACE AND CONTINUED ORDERED, TRACING A-FIB RATE CONTROLLED- IV TO RIGHT THUMB CONTINUED AND SL- CHEST X-RAY RESULTS SENT TO , NO NEW ORDERS AT THIS TIME- POOR PO INTAKE CONTINUES THIS SHIFT, BOOST OFFERED- BS MONITORED INDICATED- PT UP TO CHAIR THIS SHIFT, FOR SHIRT TIME-PT NOTED TO BE WEAK AND UNABLE TO SIT UP FOR LONG- O2 NOTED TO HAVE BEEN TITRATED TO 2L VIA NC, O2 SAT 1600 NOTED 92%- PT SIT UP STRAIGH IN BED TO IMPROVE BREATHING- PT DENIES ANY C/O PAIN/DISCOMFORT AT THIS TIME- ALL NEEDS MET AT THIS TIME-WCTM
[2017-07-18 19:40] VITALS: BP 123/44
--- NOTE | 2017-07-18 20:00 | NUR ---
ASSESSMENT AND VITALS COMPLETED CHARTED, VSS. PATIENT DENIES PAIN OR DISCOMFORT. PATIENT ON 2L NC WITH SATS >92%. BRADLEY IN PLACE TO DD. PATIENT DENIES NEEDS AT THIS TIME. GOAL IS TO MAINTAIN SATS >92% AND IMPROVEMENT OF SHORTNESS OF AIR. CALL LIGHT WITHIN REACH.
[2017-07-19] VITALS: BP 130/45
[2017-07-19 04:00] VITALS: BP 152/61
--- NOTE | 2017-07-19 07:34 | NUR ---
PATIENT NOT PROGRESSING TOWARDS GOALS: PATIENT HAD EPISODES OF SHORTNESS OF AIR ON 2L NC, NOT IMPROVED WITH ELEVATION OF HOB. PATIENT REQUIRING 3L O2 NC TO MAINTAIN SATS >92%. PATIENT STATES RELIEF OF SHORTNESS OF AIR THIS MORNING. HOURLY ROUNDING OBSERVED. CALL LIGHT WITHIN REACH
[2017-07-19 08:04] VITALS: BP 98/62
--- NOTE | 2017-07-19 10:02 | NUR ---
ASSUMED CARE OF PT THIS AM AROUND 07- PIPE STEM REPAIRER IN PLACE ORDERED, TRACING A-FIB- UPON ASSESSMENT PT NOTED TO BE RESTING IN BED- PT A&O X4- CONTINET OF BOWEL, FOLE IN PLACE D/D CLEAR YELLOW URINE R/T CRITICAL I&O- EXTENSIVE ASSIST X 1-2 WITH TRANSFERS, Q [address] INDICATED- LCTA, DIMINISHED IN BASES- DYSPNEA NOTED- BP THIS AM NOTED AT 98/62, COREG HELD THIS AM- O2 SAT 95% ON 3L- POOR PO INTAKE NOTED THIS AM- ABDOMEN SOFT/ROUND/NON-TENDER, BS X4 QUADS- LAST BM REPORTED X2 DAYS AGO, SCHEDULED MIRALAX GIVEN THIS AM PRESCRIBED- BS AC PRESCRIBED, SSI INDICATED- IV NOTED TO RIGHT HAND/THUMB, SL- IV ABT GIVEN PRESCIBED THIS AM- PT DENIES ANY C/O PAIN/DISCOMFORT AT THIS TIME- CALL LIGHT AND PERSONAL BELONGINGS WITH IN REACH- HOURLY ROUNDS IN PLACE R/T SAFETY/NEEDS- ALL NEEDS MET AT THIS TIME-WCTM
[2017-07-19 11:25] VITALS: BP 150/45
[2017-07-19 16:04] VITALS: BP 135/51
--- NOTE | 2017-07-19 17:20 | NUR ---
PT CURRENTLY UP RESTING IN BED SIDE RECLINER- BATH GIVEN THIS SHIFT- SUPERVISOR TRANSFERRING AND BOXING IN PLACE AND CONTINUED ORDERED, TRACING A-FIB- POOR PO INTAKE NOTED, BOOST GIVEN- IV CONTINUED TO RIGHT HAND/THUMB AND SL- DRY COUGH NOTED-PT C/O PAIN TO TONGUE THIS SHIFT, FEW WHITE RASH NOTED TO TONGUE- MESSAGE SENT TO THIS SHIFT, NO NEW ORDERS RECIEVED AT THIS TIME- BS MONITORED ORDERED, SSI PER ORDERS- CALL LIGHT AND PERSONAL BELONGINGS WITH IN REACH- HOURLY ROUNDS IN PLACE R/T SAFETY/NEEDS- ALL NEEDS MET AT THIS TIME-WCTM
[2017-07-19 19:50] VITALS: BP 127/50
[2017-07-20] VITALS (7 sets, daily range): BP systolic 103–131; BP diastolic 39–83
[2017-07-20 05:24] LABS: ABSOLUTE BASOPHILS 0.1 thou/uL (0.0-0.2); ABSOLUTE EOSINOPHILS 0.1 thou/uL (0.0-0.7); ABSOLUTE LYMPHOCYTES 1.3 thou/uL (0.8-5.3); ABSOLUTE MONOCYTES 0.7 thou/uL (0.0-1.2); ABSOLUTE NEUTROPHILS 9.2 thou/uL (1.6-8.1); BASOPHILS 0.6 %; HEMATOCRIT 23.4 % (37.0-47.0); HEMOGLOBIN 7.5 gm/dL (12.0-15.0); LYMPHOCYTES 11.2 %; MCH 29.7 pg (26.0-34.0); MCHC 32.2 g/dL (28.0-37.0); MCV 92.1 fL (80.0-100.0); MONOCYTES 6.2 %; MPV 8.8 fl. (7.2-11.1); NUCLEATED RBCS 0 /100WBC; PLATELET COUNT* 233 thou/uL (150-400); RBC 2.53 mil/uL (4.20-5.00); RDW-CV 17.3 % (10.5-14.5); WBC 11.4 thou/uL (4.0-11.0)
--- NOTE | 2017-07-20 05:45 | NUR ---
ASSUMED CARE AT 1999, ASSESSMENT CHARTED. PATIENT ALERT/ORIENTED X4, RESTING IN BED. PATIENT TURNED AND REPOSITIONED IN BED WHEN ALLOWS, REFUSING AT TIMES. DENIES PAIN OR NEEDS. REFUSING SCD'S. MEDS PER SEP. BED ALARM ON. CALL LIGHT WITHIN REACH, ENCOURAGED TO CALL FOR NEEDS.
[2017-07-20 05:51] LABS: CALCIUM 9.2 mg/dL (8.5-10.1); POTASSIUM 5.1 mmol/L (3.5-5.1)
[2017-07-20 05:53] LABS: CREATININE 4.3 mg/dL (0.6-1.3)
--- NOTE | 2017-07-20 09:42 | NUR ---
DC orders written. Updated Michelle, clinical rehabilitation liaison, waiting on insurance auth.
--- NOTE | 2017-07-20 17:11 | NUR ---
CONTINUING TO FOLLOW PT ALONG WITH DR. MENDOZA. INSURANCE DENIED ACUTE REHAB ADMISSION STATING INSURANCE PHYSICIAN DID NOT BELIEVE THAT PT WAS MEDICALLY STABLE ENOUGH TO DISCHARGE FROM ACUTE AT THIS TIME. HOWEVER SHE DID FEEL THAT THE PT WAS MEDICALLY COMPLEX ENOUGH FOR ACUTE REHAB JUST NOT MEDICALLY STABLE AND WOULD RECONSIDER ACUTE REHAB IN 2-3 DAYS IF PT MEDICALLY IMPROVES AND IS PARTICIPATING IN THERAPIES AND TOLERATING. ALSO OFFERED A OXUK-SD-TVRM. SPOKE WITH STANILSAV PALAFOX AND INFORMED HER OF INSURANCE DECISION, SHE CALLED BACK AFTER SPEAKING WITH DRS AND STATES THEY ARE CONSULTING PULMONARY TO SEE IF PT NEEDS ANOTHER THORACENTESIS. THERAPIES TO CONTINUE TO SEE. WILL CONTINUE TO FOLLOW AND REQUEST INSURANCE AUTHORIZATION AGAIN PENDING PULMONARY CONSULT AND MEDICAL STABILITY.
--- NOTE | 2017-07-20 18:30 | NUR ---
RECEIVED REPORT FROM NOC RN. PT RESTING IN SEMI-OQUENDO'S POSITION UPON FIRST ENCOUNTER. VS OBTAINED. ASSESSMENT COMPLETE. PT TO DIALYSIS AT 0835 VIA BED AND NURSING STAFF. RETURNED TO ROOM APPROX 1245. AM MEDS GIVEN PER SEP. PT HAS POOR APPETITE BUT DRINKS BOOST NUTRITIONAL SUPPLEMENT AND NEPRO. SHE STATES SHE HAS NOT HAD AN APPETITE SINCE HER TEMP DIALYSIS CATHETER WAS PUT IN PLACE. PT WORKED WITH PHYSICAL THERAPY THIS AFTERNOON. PT SAT IN RECLINER MOST OF THE AFTERNOON. NEEDED ITEMS AND CALL LIGHT WITHIN REACH.
[2017-07-21 03:41] VITALS: BP 125/42
--- NOTE | 2017-07-21 04:30 | NUR ---
ASSUMED CARE AT 1999, ASSESSMENT CHARTED. PATIENT ALERT/ORIENTED X4, SITTING UP IN BED. PATIENT TURNED AND REPOSITIONED IN BED Q2H. DENIES PAIN OR NEEDS. MEDS PER MAR. REFUSING SCD'S. HS MEDS GIVEN WHOLE IN APPLESAUCE, TOLERATING WELL. REQUESTING BOOST FOR A SNACK. BED ALARM ON. CALL LIGHT WITHIN REACH, ENCOURAGED TO CALL FOR NEEDS.
--- NOTE | 2017-07-21 07:21 | NUR ---
PATIENT RESTING IN BED. REPORT GIVEN TO ONCOMING NURSE.
--- NOTE | 2017-07-21 07:30 | NUR ---
ASSUMED CARE OF PT ASSESSED AND DOCUMENTED. PT IS ON CARDIAC MONITER TRACING SR BBB HR 62. PT IS A&O WITH NO C/O PAIN. VSS WNL. PT IS AFEBRILE. PT IS ON FALL PRECAUTIONS PER FACILITY PROTOCOL. .
[2017-07-21 08:00] VITALS: BP 129/49
[2017-07-21 09:21] LABS: ABSOLUTE EOSINOPHILS 0.1 thou/uL (0.0-0.7); ABSOLUTE LYMPHOCYTES 0.9 thou/uL (0.8-5.3); ABSOLUTE MONOCYTES 0.5 thou/uL (0.0-1.2); ABSOLUTE NEUTROPHILS 8.1 thou/uL (1.6-8.1); BASOPHILS 0.4 %; EOSINOPHILS 0.9 %; HEMATOCRIT 22.4 % (37.0-47.0); HEMOGLOBIN 7.1 gm/dL (12.0-15.0); LYMPHOCYTES 9.5 %; MCH 28.9 pg (26.0-34.0); MCHC 31.7 g/dL (28.0-37.0); MCV 91.3 fL (80.0-100.0); MONOCYTES 4.9 %; MPV 8.3 fl. (7.2-11.1); NUCLEATED RBCS 0 /100WBC; PLATELET COUNT* 237 thou/uL (150-400); POLYS 84.3 %; RBC 2.45 mil/uL (4.20-5.00); RDW-CV 17.3 % (10.5-14.5); WBC 9.6 thou/uL (4.0-11.0)
[2017-07-21 09:42] LABS: CALCIUM 8.9 mg/dL (8.5-10.1); POTASSIUM 4.1 mmol/L (3.5-5.1)
[2017-07-21 09:45] LABS: CREATININE 3.1 mg/dL (0.6-1.3)
--- NOTE | 2017-07-21 10:30 | NUR ---
Spoke with patria Edgar. Pt to have thorgilma today, then per , should be ready to dc. Updated rehabilitation assistant. Insurance auth will need to be initiated. Following.
[2017-07-21 11:30] VITALS: BP 121/42
[2017-07-21 15:30] VITALS: BP 125/39
--- NOTE | 2017-07-21 17:31 | EKG ---
[place] [address] ELECTROCARDIOGRAM REPORT Name: KIRTI SIMPSON Room: [address] ADM IN .R.#: [id number] Admission: 07/10/17 Attend Phys: Janine Gray Discharge: Date of : 33 Report #: [id number] THIS REPORT FOR: //name// [facility] Test Date: 2017-07-17 Test Time: 14:40:01 Pat Name: KIRTI SIMPSON Department: Room: [address] Gender: F Skoog Operator: AJK : 1935 Requested By: Mo Caicedo Order Number: [id number] MD: Trevon Amato Measurements Intervals [place] Rate: 64 P: NM: QRS: -45 QRSD: 163 T: 1 QT: 486 QTc: 502 Interpretive Statements Atrial fibrillation RBBB and LAFB Low voltage Compared to ECG 07/17/2017 09:42:53 Sinus rhythm no longer present Electronically Signed On 07-21-2017 17:31:43 BINDERY LIBRARY TECHNICAL ASSISTANT by Trevon Amato [email or web address] <ELECTRONICALLY SIGNED> By: Trevon Amato MD, [facility] 07/21/17 1731 1440 1440 Trevon Amato MD, FAC /EPI
--- NOTE | 2017-07-21 17:56 | NUR ---
PT IS RESTING IN HER ROOM. SHE HAD A THORENCENTESIS TODAY AND HAS C/O PAIN AT INSERTION SITE. NO ADVERSE SIGNS NOTED. NORCO GIVEN X2 FOR PAIN. 1300 IN FLUID REMOVED. INFORMED CONSENT WAS OBTAINED. PT HAS HAD A POOR APPETITE. BRADLEY HAS CLEAR YELLOW URINE. PT HAD A BM TODAY. CXR TODAY SEE REPORT. EDUCATION GIVEN ON DEMAND. CALL LIGHT IN REACH. HOURLY ROUNDING COMPLETE.
[2017-07-21 20:00] VITALS: BP 125/53
[2017-07-22 00:15] VITALS: BP 120/43
[2017-07-22 03:53] VITALS: BP 127/41
[2017-07-22 05:06] LABS: ABSOLUTE BASOPHILS 0.1 thou/uL (0.0-0.2); ABSOLUTE EOSINOPHILS 0.2 thou/uL (0.0-0.7); ABSOLUTE LYMPHOCYTES 1.4 thou/uL (0.8-5.3); ABSOLUTE MONOCYTES 0.6 thou/uL (0.0-1.2); ABSOLUTE NEUTROPHILS 7.9 thou/uL (1.6-8.1); BASOPHILS 0.7 %; EOSINOPHILS 1.7 %; HEMATOCRIT 22.5 % (37.0-47.0); HEMOGLOBIN 7.1 gm/dL (12.0-15.0); LYMPHOCYTES 13.9 %; MCH 28.9 pg (26.0-34.0); MCHC 31.6 g/dL (28.0-37.0); MCV 91.5 fL (80.0-100.0); MONOCYTES 6.3 %; NUCLEATED RBCS 0 /100WBC; PLATELET COUNT* 258 thou/uL (150-400); POLYS 77.4 %; RBC 2.46 mil/uL (4.20-5.00); RDW-CV 17.3 % (10.5-14.5); WBC 10.2 thou/uL (4.0-11.0)
--- NOTE | 2017-07-22 05:40 | NUR ---
ASSUMED CARE AT 1999, ASSESSMENT CHARTED. PATIENT ALERT/ORIENTED X4, RESTING IN BED. PATIENT TURNED AND REPOSITIONED IN BED WITH PILLOWS Q2H. DENIES NEEDS. STATES HAVING PAIN TO CHEST WHEN DEEP BREATHING, MEDS PER MAR WITH RELIEF NOTED. DR. LEON NOTIFIED REGARDING CONTINUED PAIN POST THORACENTESIS, NO NEW ORDERS RECEIVED. BANDAIDS X2 DRY/INTACT TO BACK, NO BRUISING NOTED SURROUNDING SITES. MEDS PER MAR, TOLERATING WHOLE IN APPLESAUCE. REFUSING SCD'S. BED ALARM ON. CALL LIGHT WITHIN REACH, ENCOURAGED TO CALL FOR NEEDS.
[2017-07-22 05:52] LABS: CALCIUM 9.1 mg/dL (8.5-10.1); CREATININE 3.9 mg/dL (0.6-1.3)
--- NOTE | 2017-07-22 07:14 | NUR ---
PATIENT RESTING IN BED. REPORT GIVEN TO ONCOMING NURSE. WILL MONITOR.
--- NOTE | 2017-07-22 09:40 | NUR ---
Pt was unable to participate very much in therapy yesterday, concern that she may not be able to tolerate the 3 hours of therapy at this point. Pt had thora yesterday, was in a lot of pain. Discussed with Dr Pearl yesterday, VIVIENNE offered LTAC as dc option, Dr oliva'd CM to check into LTAC. Spoke with dtr today, dtr does not want Pt to be that far away from her and does not want LTAC. Updated Dr Pearl. Ultimate goal is for Pt to go to rehab and return home. Too medically complex for skilled at this time. Will continue to follow and be available
--- NOTE | 2017-07-22 11:43 | CON ---
[address] [address] CONSULTATION Name: KIRTI SIMPSON Room: [address] IN .R.#: [id number] Admission: 07/10/17 Attend Phys: Janine Gray Discharge: Date of : 33 Report #: [id number] THIS REPORT FOR: //name// CC: Nabil Brantley REASON FOR CONSULTATION: Pleural effusion. HISTORY OF PRESENT ILLNESS: The patient is an 81-year-old female patient who was admitted to the hospital on 07/10/2017. She presented to the hospital on the above-mentioned date and admitted with a chief complaint of swelling and shortness of breath of 3 days duration prior to hospitalization. Her background history includes cardiac arrest in 06/16/2017 when she had cardiac arrest at [facility], end-stage renal disease and she was started on dialysis since then. After that, she was sent to rehab in the [place]. She was admitted to this facility and evaluated by Nephrology and started on dialysis. It was noted that she had bilateral pleural effusion. On 07/13/2017, she underwent thoracentesis on the right side. Although she had bilateral pleural effusion, it was felt the right side had more fluid and 600 mm of fluid was drained. It was mostly transudative with negative cytology for malignant cells. She had a swallow evaluation and she is currently on diet. She had also met the swallow evaluation. Her chest x-ray showed left-sided pleural effusion on 07/18/2017. She is on 2 liter oxygen and she looks comfortable, not in distress. Her echocardiogram during this hospitalization demonstrated an ejection fraction of 60% and pulmonary artery pressure estimated to be 30 mmHg. PAST MEDICAL HISTORY: End-stage renal disease on dialysis, history of cardiac arrest at [facility], history of AFib, rheumatic fever, diabetes mellitus. SOCIAL HISTORY: Does not drink alcohol. Does not abuse drugs. Recently was in rehab unit. FAMILY HISTORY: Reviewed and noncontributory. CURRENT MEDICATIONS: Reviewed. ALLERGIES: Digitalis, lisinopril and ibuprofen. PAST SURGICAL HISTORY: Includes dialysis catheter placement. OBJECTIVE: VITAL SIGNS: On examination, she is on 2 liters oxygen with saturation more than 90%, pulse rate of 66, afebrile with blood pressure of 129/49. GENERAL: Looking comfortable, speaking full sentences, no distress. HEENT: Head normocephalic, atraumatic. Pupils are equal, reactive to light, not pale, not jaundiced. External ear looks healthy [place] [address] CONSULTATION Name: KIRTI SIMPSON Room: [address] IN [facility]#: [id number] Admission: 07/10/17 Attend Phys: Janine Gray Discharge: Date of : 33 Report #: [id number] moist mucous membrane, Mallampati of 2-3. NECK: Supple. CHEST: She has dialysis catheter on the right upper part of the chest. On auscultation, diminished air movement in the left lung base. I did not hear wheezes or crackles, symmetrical expansion, no deformities of the chest. HEART: S1, S2, no murmur. ABDOMEN: Benign, ____ nontender, positive bowel sounds. No masses felt. EXTREMITIES: Lower extremity, no edema, no calf tenderness. PSYCHIATRIC: Mood and affect appropriate. Good insight and judgment. NEUROLOGIC: Moving 4 extremities spontaneously. No focal weakness. Cranial nerves grossly normal. LABORATORY DATA: Her images were reviewed during hospitalization. The last chest x-ray demonstrated ____ left-sided pleural effusion. Her white blood count is 9.6, hemoglobin 7.1 and platelets of 237. Her creatinine is 3.1, potassium 4.1. INR of 1.1. IMPRESSION: 1. Acute hypoxemic respiratory failure. 2. Fluid overload. 3. Left-sided pleural effusion. 4. End-stage renal disease, on dialysis. PLAN: There was improvement in the right-sided pleural effusion after the thoracentesis that was done on 07/13/2017. I think she would benefit from repeat thoracentesis on the left side, hopefully we can wean her off her oxygen and improve her respiratory status, of course with continued dialysis that will control her fluid status. She is currently on azithromycin and scheduled nebulization treatment, which I would continue as you are doing. Thank you for the consult. Discussed with the patient, she agreed to proceed with left-sided thoracentesis. <ELECTRONICALLY SIGNED> By: Aleksey Godinez MD 07/22/17 1143 1011 1949Aleksey Godinez MD /nt
[2017-07-22 13:30] VITALS: BP 125/39
[2017-07-22 16:00] VITALS: BP 113/43
[2017-07-22 20:13] VITALS: BP 107/39
--- NOTE | 2017-07-22 20:47 | NUR ---
RECEIVED REPORT FROM PAZ RN. PREPARED PT FOR DIALYSIS AND TRANSPORTED VIA BED TO 3RD FLOOR DIALYSIS AREA AT 0745. PT RETURNED TO TELE UNIT AT 1250. VS OBTAINED. ASSESSMENT CCOMPLETE. MEDS GIVEN PER SEP. TELE MONITOR TRACING SR BBB, 70'S. PT C/O PAIN WITH INSPIRATION. PRN PAIN MED GIVEN PER SEP. PT READY FOR NAP. PT AWOKE FROM NAP CRYING OUT IN PAIN, HOLDING HER CHEST. VS OBTAINED, WNL. STAT EKG OBTAINED. NO CHANGES NOTED IN RHYTHM. DR. LEON'S RESIDENT TO ROOM FOR ASSESSMENT& CONFERRED WITH DR. LEON WHO WILL ORDER CXR. REPOSITIONED PT AND PT SETTLED DOWN, STATING THAT THE PAIN SUBSIDED. LATER, WHEN HER DAUGHTER WAS VISITING, PT STATED THAT HER PAIN IS MUCH BETTER. PT STATES THAT NOW SHE ONLY HAS PAIN WITH VERY DEEP BREATHS. NEEDED ITEMS AND CALL LIGHT WITHIN REACH. CONVERSATION WITH DTR ABOUT STATUS OF PT'S PROGRESS TOWARD GOALS. DTR IS HAVING A HARD TIME UNDERSTANDING HOW THE PATIENT HAS BECOME SO WEAK AND UNABLE TO TRANSFER WITHOUT ASSIST OF 2 PEOPLE. DTR WANTS TO SPEAK WITH PHYSICIAN. DTR WILL BE AT BEDSIDE TOMORROW. DISCUSSED WHAT AN LTAC IS AFTER DTR BEGAN ASKING QUESTIONS ABOUT THAT LEVEL OF CARE. ANSWERED QUESTIONS ABOUT LTAC TO DTR'S SATISFACTION. DTR MAY BE OPEN TO LTAC SHE REALIZES THE DIFFICULTY OF DIALYSIS AND SNF WITH TRANSPORTATION, ETC.
[2017-07-23 00:27] VITALS: BP 117/42
[2017-07-23 04:28] VITALS: BP 124/35
--- NOTE | 2017-07-23 04:56 | NUR ---
Pt states pain she had following L thoracentesis has nearly resolved, states she still has some discomfort with deep breaths. Also c/o dryness and stuffiness to nose. Ordered saline nasal spray, reports some relief following first dosing this am. BP 120s/upper 30s-40s. HR 60s. Remains on loading dose of amiodarone. Will continue to monitor.
[2017-07-23 05:01] LABS: HEMATOCRIT 21.1 % (37.0-47.0); MCH 29.4 pg (26.0-34.0); MCHC 32.6 g/dL (28.0-37.0); MCV 90.2 fL (80.0-100.0); MPV 9.2 fl. (7.2-11.1); NUCLEATED RBCS 0 /100WBC; PLATELET COUNT* 247 thou/uL (150-400); RBC 2.34 mil/uL (4.20-5.00); WBC 9.6 thou/uL (4.0-11.0)
[2017-07-23 05:30] LABS: HEMOGLOBIN 6.9 gm/dL (12.0-15.0)
[2017-07-23 05:33] LABS: CALCIUM 8.5 mg/dL (8.5-10.1); POTASSIUM 4.3 mmol/L (3.5-5.1)
[2017-07-23 05:36] LABS: CREATININE 2.6 mg/dL (0.6-1.3)
[2017-07-23 06:15] LABS: ABSOLUTE LYMPHOCYTES 2.2 thou/uL (0.8-5.3); ABSOLUTE MONOCYTES 0.4 thou/uL (0.0-1.2); HYPOCHROMASIA Occasional; PLATELET ESTIMATE ADEQUATE; SCHISTOCYTES Occasional
[2017-07-23 06:16] LABS: ANISOCYTOSIS 1+; POIKILOCYTOSIS 1+
[2017-07-23 07:30] VITALS: BP 102/37
--- NOTE | 2017-07-23 10:07 | NUR ---
Spoke with Pt regarding LTAC, in agreement with LTAC. CM will fax referral to [facility].
--- NOTE | 2017-07-23 11:00 | NUR ---
RECEIVED PT CARE 0700. PT IS AWAKE/ALERT AND ORIENTED X4. VSS. ART CONSULTANT TRACING SR WITH BBB. PATIENT NOT MOTIVATED TO DO MUCH OF ANYTHING. DOES NOT WANT TO GET UP AND SIT IN A CHAIR AND SHE HAS A POOR APPETITE. SHE STATES, 'I JUST CANT EAT.' AM ASSESSMENT CHARTED. MEDS PER MAR. TAKES MEDICATION WHOLE WITH APPLESAUCE. PHYSICIAN AND CASE MANAGEMENT BOTH WERE IN TO TALK TO THE PATIENT ABOUT DISCHARGE GOALS AND POSSIBLE DISCHARGE TO LTAC. PATIENT STATED SHE WOULD BE AGREEABLE TO GO TO LTAC. KEEPING CALL LIGHT WITHIN REACH. BED ALARM ON. WILL CONTINUE TO MONITOR.
[2017-07-23 15:12] VITALS: BP 116/57; BP 118/36; BP 127/40; BP 131/38
--- NOTE | 2017-07-23 15:45 | EKG ---
[place] [address] ELECTROCARDIOGRAM REPORT Name: KIRTI SIMPSON Room: [address] ADM IN M.R.#: [id number] Admission: 07/10/17 Attend Phys: Janine Gray Discharge: Date of : 31 Report #: [id number] THIS REPORT FOR: //name// [facility] Test Date: 2017-07-22 Test Time: 14:58:54 Pat Name: KIRTI SIMPSON Department: Room: [address] Gender: F Full Decator Operator: : 1935 Requested By: Sam Brantley Order Number: [id number] Bogdan MD: Oscar Cruz Measurements Intervals [place] Rate: 74 P: 28 [place]: 180 QRS: -45 QRSD: 170 T: 18 QT: 460 QTc: 511 Interpretive Statements Sinus rhythm RBBB and LAFB Compared to ECG 07/18/2017 08:23:56 Atrial fibrillation no longer present Electronically Signed On 07-23-2017 15:45:04 RESOURCE ROOM SPECIAL EDUCATION TEACHER by Oscar Cruz [email or web address] <ELECTRONICALLY SIGNED> By: Oscar Cruz MD, [facility] 07/23/17 1545 1458 1458 Oscar Cruz MD, FAC /EPI
[2017-07-23 16:09] VITALS: BP 124/35
--- NOTE | 2017-07-23 18:38 | NUR ---
PT PARTIALLY PROGRESSING TOWARDS GOALS. BRADLEY DISCONTINUED EARLY AFTERNOON. I WAS ABLE TO GET THE PATIENT OUT OF BED AND TRANSFER TO THE BEDSIDE COMMODE FOR A BOWEL MOVEMENT THIS AFTERNOON. SHE CONTINUES TO WEAR O2 AT 2L NC. ATTEMPTED TO TITRATE O2 BUT PATIENT SAID SHE WAS SHORT OF AIR. O2 SAT 99% ON 2L NC. CONTINUOUS PULSE OX PLACED PER PULMONARY FOR BLOOD INFUSION. PATIENT RECEIVED 1 UNIT RBC'S THIS AFTERNOON. VITAL SIGNS STABLE DURING AND POST INFUSING. SHE COMPLAINS OF LEFT SIDE AND LEFT LOWER BACK PAINS. PRN PAIN MEDICATION GIVEN WITH GOOD RELIEF. REPOSITIONED FOR COMFORT. PATIENT TRANSFERS WITH ASSIST X1-2. POOR APPETITE BUT WILL DRINK HER BOOST/SUPPLEMENT SHAKE. HOURLY ROUNDING CHARTED. BED ALARM ON. CALL LIGHT WITHIN REACH. WILL CONTINUE TO MONITOR.
[2017-07-23 19:45] VITALS: BP 133/41
[2017-07-24] VITALS: BP 124/43
[2017-07-24 04:00] VITALS: BP 133/44
--- NOTE | 2017-07-24 04:21 | NUR ---
Pt appeared to be asleep during most of the shift. VSS. Continuous pulseox shows sats in upper 90's on 2L O2. Scheduled to have dialysis at 0800 today. C/O being hot and sweating early in shift. Changed pillow case and placed towel over pillow. No complaints since. Will continue to monitor.
[2017-07-24 05:05] LABS: ABSOLUTE BASOPHILS 0.1 thou/uL (0.0-0.2); ABSOLUTE EOSINOPHILS 0.1 thou/uL (0.0-0.7); ABSOLUTE MONOCYTES 0.8 thou/uL (0.0-1.2); ABSOLUTE NEUTROPHILS 5.6 thou/uL (1.6-8.1); HEMATOCRIT 26.5 % (37.0-47.0); HEMOGLOBIN 8.6 gm/dL (12.0-15.0); LYMPHOCYTES 23.7 %; MCH 29.5 pg (26.0-34.0); MCHC 32.5 g/dL (28.0-37.0); MCV 90.8 fL (80.0-100.0); MPV 8.7 fl. (7.2-11.1); NUCLEATED RBCS 0 /100WBC; PLATELET COUNT* 271 thou/uL (150-400); POLYS 65.3 %; RBC 2.92 mil/uL (4.20-5.00); RDW-CV 17.7 % (10.5-14.5); WBC 8.5 thou/uL (4.0-11.0)
[2017-07-24 05:21] LABS: CALCIUM 9.1 mg/dL (8.5-10.1); POTASSIUM 4.8 mmol/L (3.5-5.1)
[2017-07-24 05:23] LABS: CREATININE 3.7 mg/dL (0.6-1.3)
[2017-07-24 09:20] VITALS: BP 176/96
--- NOTE | 2017-07-24 10:35 | NUR ---
Spoke with Randal at [facility], Pt's insurance is out of network for them. Spoke with Travis at [facility], they are in network, faxed referral. Following.
--- NOTE | 2017-07-24 14:45 | EKG ---
[place] [address] ELECTROCARDIOGRAM REPORT Name: KIRTI SIMPSON Room: [address] ADM IN M.R.#: [id number] Admission: 07/10/17 Attend Phys: Janine Gray Discharge: Date of : 31 Report #: [id number] THIS REPORT FOR: //name// [facility] Test Date: 2017-07-24 Test Time: 06:16:58 Pat Name: KIRTI SIMPSON Department: Room: [address] Gender: F Track Repair Laborer: : 1935 Requested By: Stephon Gann Order Number: [id number] Bogdan MD: Trevon Amato Measurements Intervals [place] Rate: 61 P: 6 W[place]: 185 QRS: -45 QRSD: 169 T: -5 QT: 475 QTc: 479 Interpretive Statements Sinus rhythm RBBB and LAFB Compared to ECG 07/22/2017 14:58:54 No significant changes Electronically Signed On 07-24-2017 14:45:41 DIRECTOR CHILD ABUSE THERAPY by Trevon Amato [email or web address] <ELECTRONICALLY SIGNED> By: Trevon Amato MD, [facility] 07/24/17 1445 5 5 Trevon Amato MD, FAC /EPI
[2017-07-24 15:46] VITALS: BP 112/40
--- NOTE | 2017-07-24 16:27 | NUR ---
Ins denied LTAC, updated Dr Brantley, he agreed to complete peer to peer . Pt is unable to tolerate sitting for 4 hours for dialysis. Following.
--- NOTE | 2017-07-24 17:55 | NUR ---
PT C/O OF CHEST PAIN WITH INSPIRATION. PRN HYDROCODONE ADMININSTERED PER MAR WITH RELIEF. PT REPORTS HAVING DIFFICULTY SWALLOWING. ST RE-CONSULTED. PT PLACED ON PUREED DIET PER PT'S REQUEST. PT TAKING PILLS CRUSHED IN APPLE SAUCE PER PT REQUEST. AMIODARONE AND CARVEDILOL HELD 1 TIME THIS SHIFT HAS PT HAD LOW BP AFTER DIALYSIS. PT HAD BM THIS SHIFT.
--- NOTE | 2017-07-24 17:58 | NUR ---
CALLED PHARMACY AND PCP FOR CLARIFICATION ON PT'S CALCIUM ACETATE. IN SPECIAL INSTRUCTIONS CALCIUM ACETATE SAID TAKE 1/[address] CERVANTES TO BE 667MG TID. ORDERS CHANGED.
[2017-07-24 20:00] VITALS: BP 134/47
[2017-07-25] VITALS: BP 125/45
[2017-07-25 04:00] VITALS: BP 130/44
[2017-07-25 05:24] LABS: ABSOLUTE BASOPHILS 0.1 thou/uL (0.0-0.2); ABSOLUTE EOSINOPHILS 0.1 thou/uL (0.0-0.7); ABSOLUTE LYMPHOCYTES 1.7 thou/uL (0.8-5.3); ABSOLUTE MONOCYTES 0.7 thou/uL (0.0-1.2); ABSOLUTE NEUTROPHILS 4.8 thou/uL (1.6-8.1); BASOPHILS 1.1 %; EOSINOPHILS 1.9 %; HEMATOCRIT 28.6 % (37.0-47.0); HEMOGLOBIN 9.4 gm/dL (12.0-15.0); LYMPHOCYTES 22.4 %; MCH 30.1 pg (26.0-34.0); MCV 91.1 fL (80.0-100.0); MPV 8.9 fl. (7.2-11.1); NUCLEATED RBCS 0 /100WBC; PLATELET COUNT* 264 thou/uL (150-400); POLYS 64.6 %; RBC 3.14 mil/uL (4.20-5.00); RDW-CV 18.1 % (10.5-14.5); WBC 7.4 thou/uL (4.0-11.0)
[2017-07-25 05:43] LABS: CALCIUM 8.6 mg/dL (8.5-10.1); POTASSIUM 3.9 mmol/L (3.5-5.1)
[2017-07-25 05:46] LABS: CREATININE 2.7 mg/dL (0.6-1.3)
[2017-07-25 08:00] VITALS: BP 124/42
--- NOTE | 2017-07-25 08:01 | NUR ---
PT ALERT ANXIOUS AT TIMES. PT HAVING PLURITIC PAIN SINCE HAVING THORACENTESIS. HYDROCODONE AND LORAZEPAM GIVEN HS. HYDROCODONE GIVEN THIS AM.
[2017-07-25 11:03] LABS: BE 5.3 mmol/L (-2 to +3); HCO3 29.8 mmol/L (22.0-26.0); PCO2 43.6 mmHg (35.0-45.0); PO2 68.2 mmHg (75.0-100.0); pH 7.452 (7.340-7.450)
[2017-07-25 12:22] VITALS: BP 120/44
[2017-07-25 16:36] VITALS: BP 121/44
--- NOTE | 2017-07-25 17:57 | NUR ---
ASSUMED CARE OF PT AT 0730. PT CONTINUES TO BE A&O X4 CALM AND COOPERATIVE. C/O PAIN HAVE BEEN EFFECTIVELY CONTROLLED WITH PRN PO HYDROCODONE. MEDICATIONS ADMINSTERED PER SEP, NURSING ASSESSMENT COMPLETED AND DOCUMENTED. PT HAS HAD NO C/O SOA, N/V, OR ANXIETY. PT HAS A POOR APPETITE AND HAS BEEN OFFERED SUPPLEMENTAL NUTRITION SUCH BOOST DRINKS AND HIGH CALORIE SANACKS. PT HAS BEEN TRACING NSR ON THE MONITOR. BED IN LOW POSITION, CALL LIGHT AND PERSONAL ITEMS IN REACH. NURSING WILL CONTINUE TO CARRY OUT POC.
[2017-07-25 20:00] VITALS: BP 133/42
[2017-07-26] VITALS (7 sets, daily range): BP systolic 127–157; BP diastolic 44–57
--- NOTE | 2017-07-26 05:07 | NUR ---
PT ALERT ORIENTED. HYDROCODONE AND ATIVAN GIVEN HS. PT RESTED VERY WELL UNTIL 0400 WHEN SHE VOIDED AND THEN STATED HER CHEST WAS HURTING AGAIN. SECOND HYDROCODONE WAS GIVEN AND PT RESTING AGAIN. TELEMETRY SHOWS SR. TURNING Q 2HRS. WILL CONTINUE TO MONITOR.
--- NOTE | 2017-07-26 18:47 | NUR ---
ASSUMED CARE OF PT AT 0730. PT CONTINUES TO BE A&O X4 CALM AND COOPERATIVE. PT HAS A POOR APPETITE AND IS RECIEVING SUPPLEMNT DRINKS FOR ADDED CALORIES AND NUTRITION. PT C/O PAIN HAVE BEEN CONTROLLED WITH PRN PO PAIN MEDICATIONS. PT VSS AND HAS BEEN TRACING NSR ON THE MONINITOR WITH A BBB. NURSING WILL CONTINUE TO MONITOR.
[2017-07-27 03:41] VITALS: BP 154/50
[2017-07-27 05:11] LABS: HEMATOCRIT 28.1 % (37.0-47.0); HEMOGLOBIN 9.5 gm/dL (12.0-15.0); MCH 29.7 pg (26.0-34.0); MCHC 33.8 g/dL (28.0-37.0); MCV 87.9 fL (80.0-100.0); MPV 7.8 fl. (7.2-11.1); RBC 3.2 mil/uL (4.20-5.00); RDW-CV 18.5 % (10.5-14.5); WBC 5.5 thou/uL (4.0-11.0)
--- NOTE | 2017-07-27 05:19 | NUR ---
PATIENT HAS REMAINED ALERT AND ORIENTED X 4 THROUGHOUT THE SHIFT AND RESTING QUIETLY ON HOURLY ROUNDS. REPOSITIONED Q2H WITH ASSIST. O2 ON AT 1L/MIN. VITAL SIGNS STABLE. REQUESTED AND RECEIVED PAIN MEDICATION X 1 OF THIS WRITING. VOIDS PER BEDPAN. MEDS PER ORDERS. SINUS IRVIN TO NSR & BBB ON THE MONITOR. CONTINUE TO MONITOR.
[2017-07-27 05:46] LABS: CALCIUM 9.2 mg/dL (8.5-10.1); MAGNESIUM 2.8 mg/dL (1.8-2.4); POTASSIUM 4.4 mmol/L (3.5-5.1); TOTAL BILIRUBIN 0.2 mg/dL (<0.1-1.0); TOTAL PROTEIN 5.3 g/dL (6.4-8.2)
[2017-07-27 05:51] LABS: CREATININE 4.7 mg/dL (0.6-1.3)
[2017-07-27 08:00] VITALS: BP 142/55
--- NOTE | 2017-07-27 08:16 | NUR ---
CONTINUEING TO FOLLOW PT ALONG WITH DR. MENDOZA. PT REMAINS UNABLE TO TOLERATE 3 HOURS OF THERAPY. PT WOULD BENEFIT FROM LTAC UNTIL MEDICALLY STABLE AND ABLE TO TOLERATE OOB ACTIVITIES AND THERAPIES. WILL CONTINUE TO FOLLOW THROUGH HOSPITAL COURSE AND MAKE RECOMMEDATIONS PT CONTINUES TO PROGRESS
--- NOTE | 2017-07-27 08:28 | NUR ---
NOTIFIED CM THURSDAY EVENING THAT AFTER PEER TO PEER CONVERSATION WITH INS.,PT.CAN NOW GO TO LTAC. 2 MESSAGES LEFT FOR ADMISSIONS [facility] FOR [facility] -ONE THU. AND ONE THURSDAY. NEVER RETURNED CM CALL. WILL CONTACT HIM THIS AM TO START PROCESS.
--- NOTE | 2017-07-27 11:20 | NUR ---
Spoke with Travis at [facility], confirmed that ins reversed decision and Pt can admit to LTAC today. Pt currently in dialysis. Updated Pt's dtr. Chart copied. Nurse report number provided. Plan on ambulance transport for 3pm. EMTALA form completed, original on chart, copy to be sent with Pt.
--- NOTE | 2017-07-27 11:23 | NUR ---
VSS, ASSUMED CARE IN THE AM, ASSESSMENT PERFORMED AND CHARTED, FALL PRECAUTIONS IN PLACE AND CALL LIGHT IN REACH, PT IS A&O4 AND STATES PAIN IN HER CHEST, PT IS ON 1L NC AND IS WEAK, PT GOAL IS TO COMPLETE DIALYSIS AND D/C TO [facility], WILL FOLLOW WITH PLAN OF CARE. PT IS UP WITH MAX AND IS SR ON THE MONITOR,
--- NOTE | 2017-07-27 15:00 | NUR ---
VSS, RECIEVED D/C ORDERS, FILLED OU D/C PAPAERS AND MEDICATION SHEET. PT IV AND TELE MONITOR TAKEN OFF, PT ON 1L NC AND WAS TAKEN OUT VIA CART BY AMBULACE. HOURLY ROUNDS CMPLETED, CALLED REPORT TO LTAC AND PROVITED CALL BACK NUMBER,
[2017-07-27] MEDS ORDERED: CEFTRIAXON1 GM/50 M1 IVPB (15:01)
[2017-07-27] MEDS ORDERED: ATIVAN0.5 MG PO (15:02)
[2017-07-27] MEDS ORDERED: AZITHROMYCIN 2250 MG PO (15:09)
[2017-07-27 15:10] VITALS: BP 142/55
--- NOTE | 2017-07-27 16:33 | 2DMMODE ---
[address] [address] 2 D/M-MODE ECHOCARDIOGRAM Name: TATIANAKIRTI Hutchins Room: [address] IN [facility]#: [id number] Admission: 07/10/17 Attend Phys: Sam Brantley Discharge: 07/27/17 Date of : 31 Date of Service: 07/27/17 1632 Report #: [id number] THIS REPORT FOR: //name// APPROVED REPORT Study performed: 07/27/2017 14:26:33 EXAM: Limited 2D Echocardiogram Patient Location: In-Patient Room #: 202 Status: routine BSA: 1.65 HR: 68 bpm BP: 142/55 mmHg Rhythm: NSR Other Information Study Quality: Good Indications Pericardial Effusion Pleural Effusion Left Ventricle The left ventricle is normal size. Mild concentric left ventricular hypertrophy. The left ventricular systolic function is normal. The left ventricular ejection fraction is within the normal range. LVEF is 60-65%. Right Ventricle The right ventricle is normal size. The right ventricular systolic function is normal. Atria Left atrium is mildly dilated. The right atrium size is normal. Aortic Valve Aortic valve leaflets are mildly thickened. Mitral Valve Mitral valve leaflets are thickened. Tricuspid Valve The tricuspid valve is normal in structure. [address] [place] [address] 2 D/M-MODE ECHOCARDIOGRAM Name: KIRTI SIMPSON Room: [address] IN M.R.#: [id number] Admission: 07/10/17 Attend Phys: Sam Brantley Discharge: 07/27/17 Date of : 31 Date of Service: 07/27/171631 Report #: [id number] Pulmonic Valve Pulmonic valve is not well visualized. Great Vessels The aortic root is normal in size. IVC is dilated. Pericardium Trace pericardial effusion. Left pleural effusion. <Conclusion> LVEF is 60-65%. Mild concentric left ventricular hypertrophy. Left atrium is mildly dilated. Aortic valve leaflets are mildly thickened. Trace pericardial effusion. <ELECTRONICALLY SIGNED> By: Mo Caicedo MD, FACC 07/27/171631 31 31 Mo Caicedo MD, FACC /INF
--- NOTE | 2017-07-29 14:12 | CON ---
[address] [address] CONSULTATION Name: TATIANAKIRTI J Room: [address] IN M.R.#: [id number] Admission: 07/10/17 Attend Phys: Janine Gray Discharge: 07/27/17 Date of : 31 Report #: [id number] THIS REPORT FOR: //name// CC: Nabil Brantley REASON FOR CONSULTATION: Evaluation and recommendations regarding post-acute rehabilitation in a female who is admitted status post cardiac arrest, hospital-acquired bacterial pneumonia with bilateral pleural effusions status post thoracentesis with return of effusions within 24 hours. She is currently now end-stage renal disease, on dialysis Tuesdays, and Saturdays. She has significant fluid overload with congestive heart failure and has suspected dysphagia with a video swallow pending. She is in acute respiratory failure requiring 5-6 liters of oxygen around the clock. Previously, she was on no oxygen. There is also suspicion of cognitive impairment with ongoing confusion and speech language pathology is currently doing a further cognitive evaluation. She was previously independent with all activities of daily living, doing all of her own housework, driving and is now minimum to moderate assistance of 1-2 depending on therapy, activity and time of day. She is very debilitated, requiring physical and occupational therapy as well as speech and language pathology, both for cognitive impairment as well as dysphagia causing further aspiration pneumonia. She is currently working with therapies. Further medical history includes aortic stenosis, atrial fibrillation with rapid ventricular response, recent urinary tract infection. PAST MEDICAL HISTORY: Atrial fibrillation, dialysis, rheumatic fever, diabetic uncontrolled, end-stage renal disease. SOCIAL HISTORY: No tobacco, alcohol or recreational drug use. ALLERGIES: DIGITALIS, IBUPROFEN, AND LISINOPRIL. MEDICATIONS: Reviewed and are available in the MAR. REVIEW OF SYSTEMS: A 14-point review of systems is done and is negative except as mentioned in the HPI, specifically no fever, chest pain, shortness of breath, abdominal pain or distention, change in bowel or change in bladder. PHYSICAL EXAMINATION: GENERAL: Alert, oriented, no apparent distress. She is short of air when she is talking. She does have O2 per nasal cannula. HEENT: Head: Atraumatic, normocephalic. Pupils equal, round, reactive. ABDOMEN: Soft, nontender, nondistended. NEUROLOGIC: Cranial nerves 2-12 are grossly intact. No focal neuro deficits, 5/5 strength in the bilateral upper and lower extremities, although she does appear frail and debilitated. SKIN: Warm and dry. No rashes [place] [address] CONSULTATION Name: KIRTI SIMPSON Liset Room: [address] IN ..#: [id number] Admission: 07/10/17 Attend Phys: Janine Gray Discharge: 07/27/17 Date of : 31 Report #: [id number] ASSESSMENT: Significant debility status post acute hospitalization with history of recent cardiac arrest, acute respiratory failure, requiring 5-6 liters of oxygen, hospital-acquired pneumonia, renal failure on dialysis. RECOMMENDATION: 1. Recommend acute inpatient rehabilitation to facilitate safe discharge to the home setting where she does have house, 2-3 steps to enter. She does have a daughter that can help with assistance on discharge. 2. Continue with physical and occupational therapy. 3. Video swallow is pending. 4. Speech language pathology to do further in-depth cognitive evaluation. <ELECTRONICALLY SIGNED> By: Marbella Mann DO 07/29/17 1412 1252 [id number] Mann DO /nt
== END 2017-07-27 15:20 | DRG 177 ==
LOC: M.ERS 18:21 → M.TBA-ER 19:29 → M.2W 19:29
PROVIDERS: Family Medicine; Internal Medicine; Internal Medicine Nephrology; Physician Assistant; ADMIT Internal Medicine
PROC: 0W993ZX Drainage of Right Pleural Cavity, Percutaneous Approach, Diagnostic (ICD-10-PCS; principal; 2017-07-13)
PROC: B24BZZ4 Ultrasonography of Heart with Aorta, Transesophageal (ICD-10-PCS; principal; 2017-07-13)
PROC: 5A1D70Z Performance of Urinary Filtration, Intermittent, Less than 6 Hours Per Day (ICD-10-PCS; 2017-07-15)
PROC: 5A1D70Z Performance of Urinary Filtration, Intermittent, Less than 6 Hours Per Day (ICD-10-PCS; 2017-07-20)
PROC: 0W9B3ZX Drainage of Left Pleural Cavity, Percutaneous Approach, Diagnostic (ICD-10-PCS; 2017-07-21)
PROC: 5A1D70Z Performance of Urinary Filtration, Intermittent, Less than 6 Hours Per Day (ICD-10-PCS; 2017-07-22)
PROC: 5A1D70Z Performance of Urinary Filtration, Intermittent, Less than 6 Hours Per Day (ICD-10-PCS; 2017-07-24)
PROC: 5A1D70Z Performance of Urinary Filtration, Intermittent, Less than 6 Hours Per Day (ICD-10-PCS; 2017-07-27)
DX: J69.0 Pneumonitis due to inhalation of food and vomit (principal); N18.6 End stage renal disease; J96.01 Acute respiratory failure with hypoxia; I50.21 Acute systolic (congestive) heart failure; I13.2 Hypertensive heart and chronic kidney disease with heart failure and with stage 5 chronic kidney disease, or end stage renal disease; N25.81 Secondary hyperparathyroidism of renal origin; J90 Pleural effusion, not elsewhere classified; N17.9 Acute kidney failure, unspecified; N39.0 Urinary tract infection, site not specified; E46 Unspecified protein-calorie malnutrition; B37.9 Candidiasis, unspecified; I48.91 Unspecified atrial fibrillation; E11.22 Type 2 diabetes mellitus with diabetic chronic kidney disease; E78.5 Hyperlipidemia, unspecified; I35.0 Nonrheumatic aortic (valve) stenosis; E88.09 Other disorders of plasma-protein metabolism, not elsewhere classified; D64.9 Anemia, unspecified; Y95 Nosocomial condition; Z68.29 Body mass index [BMI] 29.0-29.9, adult; Z99.2 Dependence on renal dialysis; Z86.74 Personal history of sudden cardiac arrest; Z99.81 Dependence on supplemental oxygen; Z87.891 Personal history of nicotine dependence; Z79.899 Other long term (current) drug therapy; Z88.8 Allergy status to other drugs, medicaments and biological substances

== ENCOUNTER → 2020-07-05 | Day surgery (SDC) | payer OTHER ==
[~2020-07-05] MED LIST: AMLODIPINE BESY10 MG PO; ASPIRIN EC81 M1 PO; ATIVAN0.5 MG PO; AZITHROMYCIN 2250 MG PO; CARVEDILOL12.5 MG PO; CEFTRIAXON1 GM/50 M1 IVPB; DAILY VIT FORM1 EACH PO; FOLIC ACID1 MG PO; HYDRALAZINE 2525 MG PO; HYDROCODONE-AP1 EAC6 PO; ISOSORBIDE DINI30 MG PO; LEVO-T25 MCG PO; LIPITOR10 MG PO; LIPITOR40 MG PO; MIRALAX17 GM PO; NORCO 5-325 TA1 EAC2 PO; ONDANSETRON HCL4 M2 PO; PHOSLO667 MG PO; PLAVIX 75 MG TA75 MG PO; PROTONIX40 M1 PO; SODIUM BICARBO650 M3 PO; TRANDATE 200 M200 M1 PO; VITAMIN D250000 UNIT PO
--- NOTE | ~2020-07-05 | OP ---
[facility] [address] [place] [address] OPERATIVE REPORT Name: KIRTI SIMPSON Room: [facility]#: [id number] Admission: 07/05/20 Attend Phys: Allen Sheriff Discharge: Date of : 31 Report #: [id number] THIS REPORT FOR: cc: Nabil Yan MD, Ram MD ~ Allen Sheriff MD DATE OF SERVICE: 07/05/2020 PREOPERATIVE DIAGNOSIS: End-stage renal disease. POSTOPERATIVE DIAGNOSIS: End-stage renal disease. OPERATIONS: 1. Laparoscopic placement of tunneled intraperitoneal catheter. 2. Laparoscopic omentopexy. SURGEON: Allen Sheriff MD ANESTHESIA: General. ESTIMATED BLOOD LOSS: Minimal. SPECIMEN: None. DESCRIPTION OF PROCEDURE: After informed consent was obtained, the patient was brought to the operating room and placed supine. SCDs were placed and working, preoperative antibiotics were administered, general anesthesia was induced. The abdomen was prepped and draped in the usual sterile fashion. A 5 mm incision was made in the left upper quadrant. A 5 mm trocar was placed under direct vision. Pneumoperitoneum was established. She had some adhesions of the omentum to the abdominal wall. These were taken down sharply. The omentum was then brought up to the right upper quadrant. A 2-0 Vicryl sutures were placed using the suture passer. They were placed through the omentum and then tied. This performed the omentopexy. An 8 mm trocar was placed in the left rectus sheath as well as a 5 mm trocar in the left lower quadrant. A 62 cm catheter was placed through the trocar. The 8-mm trocar was then removed. The internal cuff was placed into the rectus sheath. Catheter was then tunneled to the left upper quadrant of the abdomen. It flushed very easily with 750 mL of normal saline. It then drained easily as well. The ports were removed under direct vision. The skin was closed with 4-0 Monocryl. Incisions were sealed [place] [address] OPERATIVE REPORT Name: KIRTI SIMPSON Room: [facility]#: [id number] Admission: 07/05/20 Attend Phys: Allen Sheriff Discharge: Date of : 31 Report #: [id number] COMPLICATIONS: None. DISPOSITION: The patient was taken to recovery in satisfactory condition. By: 0824 0829Allen Sheriff MD /titus
[2020-07-05 06:29] LABS: HEMATOCRIT 34.9 % (37.0-47.0); HEMOGLOBIN 11.3 gm/dL (12.0-15.0); MCH 30.8 pg (26.0-34.0); MCHC 32.4 g/dL (28.0-37.0); MCV 94.9 fL (80.0-100.0); MPV 9.1 fl. (7.2-11.1); RBC 3.68 mil/uL (4.20-5.00); RDW-CV 16.7 % (10.5-14.5); WBC 8.4 thou/uL (4.0-11.0)
[2020-07-05 06:33] LABS: CALCIUM 10.3 mg/dL (8.5-10.1); CREATININE 3.3 mg/dL (0.6-1.3); POTASSIUM 3.9 mmol/L (3.5-5.1)
[2020-07-05 06:38] LABS: APTT 24.4 Seconds (25.0-31.3); PROTIME 11.1 Seconds (9.20-11.50)
--- NOTE | 2020-07-05 16:25 | EKG ---
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
== END | disposition home or self-care (01) ==
LOC: M.SUR 06:03
PROVIDERS: ATTEND Surgery
DX: E11.22 Type 2 diabetes mellitus with diabetic chronic kidney disease (principal); N18.6 End stage renal disease; D64.9 Anemia, unspecified; I48.91 Unspecified atrial fibrillation; Z98.890 Other specified postprocedural states; Z79.899 Other long term (current) drug therapy; Z79.01 Long term (current) use of anticoagulants; Z20.828 Contact with and (suspected) exposure to other viral communicable diseases; Z88.8 Allergy status to other drugs, medicaments and biological substances; Z88.0 Allergy status to penicillin; Z99.2 Dependence on renal dialysis

== ENCOUNTER → 2021-01-29 | Day surgery (SDC) | payer OTHER ==
[~2021-01-29] MED LIST changes: +NORCO5 PO
--- NOTE | ~2021-01-29 | OP ---
[facility] [address] [place] [address] OPERATIVE REPORT Name: KIRTI SIMPSON Room: [facility]#: [id number] Admission: 01/29/21 Attend Phys: Allen Sheriff Discharge: Date of : 31 Report #: [id number] THIS REPORT FOR: cc: Nabil Yan MD,Nabil Sheriff,Allen Wilde MD ~ DATE OF SURGERY: 01/29/2021 PREOPERATIVE DIAGNOSIS: End-stage renal disease. POSTOPERATIVE DIAGNOSIS: End-stage renal disease. OPERATION: Removal of tunneled intraperitoneal catheter. SURGEON: Allen Sheriff MD. ANESTHESIA: General. ESTIMATED BLOOD LOSS: Minimal. SPECIMENS: None. DESCRIPTION OF PROCEDURE: After informed consent was obtained, the patient was brought to the operating room and placed supine. SCDs were placed and working, preoperative antibiotics were administered, general anesthesia was induced. The abdomen was prepped and draped in the usual sterile fashion. A 1 cm elliptical incision was made around the exit site. The external cuff was dissected out with cautery. I then made a counterincision over the internal cuff. Dissection was carried down to the fascia and the cuff was freed up and the catheter slid out very easily. I closed the fascial hole with a single 0 Vicryl stitch. Skin was then closed with 4-0 Monocryl. Incisions were sealed with Steri-Strips. COMPLICATIONS: None. DISPOSITION: The patient was taken to recovery in satisfactory condition. By: [id number] Sheriff MD /nt
[2021-01-29 06:41] LABS: HEMOGLOBIN 11.4 gm/dL (12.0-15.0); MCH 29.5 pg (26.0-34.0); MCHC 33.5 g/dL (28.0-37.0); MCV 88.2 fL (80.0-100.0); MPV 7.8 fl. (7.2-11.1); RBC 3.86 mil/uL (4.20-5.00); RDW-CV 18.6 % (10.5-14.5); WBC 8.1 thou/uL (4.0-11.0)
[2021-01-29 06:47] LABS: CREATININE 4.1 mg/dL (0.6-1.3)
[2021-01-29 06:54] LABS: APTT 27.3 Seconds (25.0-31.3); INR 1.1; PROTIME 11.3 Seconds (9.20-11.50)
--- NOTE | 2021-01-29 15:45 | EKG ---
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 : 1935 Requested By: Allen Sheriff Order Number: [id number] Reading MD: Oscar Cruz Measurements Intervals [place] Rate: 68 P: 46 HI: 187 QRS: -78 QRSD: 169 T: 7 QT: 472 QTc: 503 Interpretive Statements Sinus rhythm RBBB and LAFB Compared to ECG 07/05/2020 06:45:36 No significant changes Electronically Signed On 01-29-2021 15:44:57 CDT by Oscar Cruz [email or web address] <ELECTRONICALLY SIGNED> By: Oscar Cruz MD, [facility] 01/29/21 1544 1 Oscar Cruz MD, [facility] /EPI
== END | disposition home or self-care (01) ==
LOC: M.SUR 05:38
PROVIDERS: ATTEND Surgery
DX: E11.22 Type 2 diabetes mellitus with diabetic chronic kidney disease (principal); N18.6 End stage renal disease; I48.91 Unspecified atrial fibrillation; D64.9 Anemia, unspecified; Z98.890 Other specified postprocedural states; Z79.899 Other long term (current) drug therapy; Z79.01 Long term (current) use of anticoagulants; Z20.822 Contact with and (suspected) exposure to COVID-19; Z88.0 Allergy status to penicillin; Z88.2 Allergy status to sulfonamides; Z88.8 Allergy status to other drugs, medicaments and biological substances